=== PATIENT | female | born 1950 | race Caucasian/White ===

== ENCOUNTER 2017-09-23 16:41 | Inpatient (IN) | payer MEDICARE ==
[2017-09-23] MEDS ORDERED: Docusate 100 MG CAP PO PRN (18:25)
[2017-09-23] MEDS: METAXALONE 800 MG PO SCH (20:47)
[2017-09-23] MEDS: Vancomycin HCl 1 GM in Sodium Chloride 0.9% 250 ML 250 ML IVPB SCH (20:57)
[2017-09-23] MEDS: Venlafaxine HCl XR 150 MG CAP PO SCH (20:58)
[2017-09-23] MEDS: Pregabalin 25 MG CAP PO SCH (20:58)
[2017-09-23] MEDS: Zolpidem Tartrate 5 MG TAB PO SCH (20:59)
[2017-09-23] MEDS ORDERED: Cyclobenzaprine 10 MG TAB PO SCH (21:00)
[2017-09-23] MEDS: Acetaminophen 325 MG TAB PO PRN (21:03)
[2017-09-23] MEDS ORDERED: Vancomycin HCl 1 GM in Premix Bag 1 BAG IVPB SCH (22:00)
[2017-09-24] MEDS ORDERED: Sodium Chloride 0.9% 10 ML ONE (01:53)
[2017-09-24] MEDS: Vancomycin HCl 1 GM in Sodium Chloride 0.9% 250 ML 250 ML IVPB SCH ×3 (01:56→17:45)
[2017-09-24] MEDS: traMADol HCl 50 MG TAB PO PRN ×2 (05:03→12:01)
[2017-09-24] MEDS: Acetaminophen 325 MG TAB PO PRN ×2 (05:04→12:01)
[2017-09-24] MEDS: Pregabalin 25 MG CAP PO SCH ×2 (07:37→20:29)
[2017-09-24] MEDS: Stress 600 With Zinc 1 TAB PO SCH (07:38)
[2017-09-24] MEDS: METAXALONE 800 MG PO SCH ×2 (07:38→20:28)
[2017-09-24] MEDS ORDERED: Prevnar 13-Val Conj/PF 0.5 ML SYRINGE IM ONE (09:00)
--- NOTE | 2017-09-24 09:31 | HP ---
DATE OF ADMISSION: 09/23/2017 CHIEF COMPLAINT: IV antibiotics for postoperative wound infection and bacteremia. HISTORY OF PRESENT ILLNESS: This is a pleasant 67-year-old female with past medical history significant for fibromyalgia, chronic pain, osteoarthritis and severe lumbar stenosis that is seen today for admission to [facility] for planned IV antibiotics and physical therapy, status post L3 through L4 decompressive laminectomy that was complicated by 4 week postoperative wound infection as well as bacteremia. The patient presented to the emergency room on 09/15/2017 at [facility] with weakness, fever, and sepsis. The patient was found to have extensive wound infection at the site of her laminectomy. 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 The patient was taken to the operating room on 09/16/[address] Perez for washout of the lumbar wound and repair of the dura. Extensive purulent material was evacuated from the surgical site and irrigated extensively as well as local debridement. Subsequent wound and blood cultures resulted positive for MRSA with sensitivity to vancomycin. Dr. Stein was consulted who recommended at minimum 42 days of IV vancomycin via PICC line. The patient was stabilized from an infectious standpoint and was able to be transferred yesterday here for planned physical therapy as well as IV antibiotics. At present, the patient states her pain is very well controlled with tramadol as needed. She has no complaints at this time. She has been ambulatory to the bathroom, but has not had a chance to work with physical therapy. She is not having any further fevers and denies any other concerns at this time. PAST MEDICAL HISTORY: Significant for, 1. Severe lumbar stenosis, status post laminectomy of L3-L4. 2. Fibromyalgia. 3. Chronic pain syndrome. PAST SURGICAL HISTORY: 1. L3-L4 decompressive laminectomy performed on 08/19/2017. 2. Hysterectomy. 3. Cholecystectomy. 4. Washout of lumbar wound and debridement 09/16/17. SOCIAL HISTORY: The patient lives with her in [place]. She is not a smoker, does not drink alcohol or use illicit drugs. Her designated power of attorney general is her granddaughter, Josefina. She has expressed wishes to be DNR/DNI and will be completing paperwork on this in the near future. ALLERGIES TO MEDICATIONS: SULFA with reaction of swelling. FAMILY HISTORY: Noncontributory. MEDICATIONS: 1. Daily multivitamin. 2. Skelaxin 800 mg twice daily. 3. Pantoprazole 40 mg twice daily. 4. Lyrica 75 mg twice daily. 5. Tramadol 50 mg every 6 hours as needed. 6. Vancomycin 1 gram every 8 hours. 7. Effexor 150 mg once daily. 8. Ambien 10 mg once nightly. REVIEW OF SYSTEMS: She denies any fever, weight gain, weight loss, and malaise. She denies any chest pain, shortness of breath, nausea, vomiting, abdominal pain, diarrhea, bloody stools, dysuria, hematuria, frequency, syncope , headache. Essentially unremarkable with the exception of low back pain. PHYSICAL EXAMINATION: VITAL SIGNS: Temperature is 98.1 with T-max of 99.9 since admission, blood pressure is 117/59, heart rate is 93, respirations 20, O2 saturations 98% on room air. GENERAL: She is alert and oriented x3. She is in no apparent distress. She is resting comfortably in the bed. She is cooperative, calm. HEENT: Pupils are equally round and reactive to light. Extraocular movements are intact. Sclerae nonicteric, conjunctivae are not hyperemic. Oropharynx is moist without erythema or exudates. NECK: Supple, without lymphadenopathy or thyromegaly. Negative for carotid bruits. HEART: Has regular rate and rhythm without any murmurs. LUNGS: Clear to auscultation bilaterally with no wheezing, rales or rhonchi. ABDOMEN: Soft, nontender, nondistended with normoactive bowel sounds. EXTREMITIES: Negative for clubbing, cyanosis, edema. SKIN: Warm and dry. Posterior lower back incision is well approximated with sutures in place. No erythema or drainage at the surgical site. NEUROLOGIC: Strength is 5/5 in left lower extremity, 4/5 in right lower extremity, otherwise nonfocal. Cranial nerves II through XII are grossly intact. PSYCHIATRIC: She is pleasant, not depressed, not anxious, not agitated. LABORATORY DATA: Most recent labs done on 09/20/2017 showed a white blood cell count of 17.4, hemoglobin of 11.4, hematocrit 34.8, platelets at 329, the patient had a down trending C-reactive protein of 31 initially with subsequent result of 16 on 09/20/2017. Her last vancomycin trough was on 09/17/2017 at 15.7. ASSESSMENT AND PLAN: 1. Methicillin-resistant Staphylococcus aureus bacteremia, status post wound infection from L3-L4 laminectomy. The patient has been admitted to [facility] for planned IV antibiotics with vancomycin 1 gram every 8 hours for anticipated duration of [address] Stein will be contacted on Tuesday to clarify his involvement in managing her vancomycin troughs or if that will be managed exclusively here. For now, she is due for vancomycin trough level which will be drawn tomorrow as well as a CBC, CRP, and CMP weekly per his recommendations. The patient is doing very well and showing no further signs of sepsis at this time. 2. Status post L3-L4 laminectomy, complicated by postoperative wound infection. PT and OT will be consulted for patient to continue working on her rehabilitation status post surgery. She will be given pain control with tramadol, Lyrica, and muscle relaxer as needed. GI prophylaxis: protonix, which will be decreased and likely switched to H2 nicolette. DVT ppx: none. Code status: DNR. DISPOSITION: Anticipate minimum of 42 days of IV antibiotics that was started on 09/16/2017. She will need physical therapy until she is able to return home to independent living. We will be consulting Dr. Stein and Dr. Perez regarding her followup care on an outpatient basis. MCKINLEY
[2017-09-24] MEDS: Cyclobenzaprine 10 MG TAB PO PRN (14:27)
[2017-09-24 17:15] LABS: Vancomycin, Trough 20.1 ug/mL
[2017-09-24 17:16] LABS: Band 2 % (5-11); Hemoglobin 10.4 g/dL (12.0-16.0); Lymphocytes 15 % (21-51); MDiff Complete? YES; Manual Diff?? YES; Mean Corpuscular HGB CONC 33.5 g/dL (32.0-36.0); Mean Corpuscular Hemoglobin 29.6 pg (27.0-31.0); Mean Corpuscular Volume 88.6 fL (81.0-99.0); Mean Platelet Volume 6.5 fL (7.4-10.4); Monocytes 2 % (0-10); Neutrophil 81 % (42-75); Platelet Count 450 thou/uL (130-400); RBC Distribution Width 12.5 % (11.5-14.5); Red Blood Cell (RBC) Count 3.51 mill/uL (4.20-5.40); White Blood Cell (WBC) Count 15.2 thou/uL (4.8-10.8)
[2017-09-24 17:20] LABS: ALT (SGPT) 13 U/L (8-55); AST (SGOT) 13 U/L (5-34); Albumin 2.7 g/dL (3.4-4.8); Alkaline Phosphatase 90 U/L (40-150); Anion Gap 16 mmol/L (10-20); BUN (Urea Nitrogen) 6 mg/dL (9.8-20.1); Bilirubin, Total 0.4 mg/dL (0.2-1.2); Calc. Creatinine Clearance 125 mL/min (70-130); Calcium 8.5 mg/dL (7.8-10.44); Carbon Dioxide 26 mmol/L (23-31); Chloride 100 mmol/L (98-107); Estimated GFR-MDRD Greater than 90; Globulin 3.1 g/dL (2.4-3.5); Glucose 147 mg/dL (80-115); Protein, Total 5.8 g/dL (6.0-8.3); Sodium 139 mmol/L (136-145)
[2017-09-24 17:42] LABS: Potassium 2.7 mmol/L (3.5-5.1)
[2017-09-24] MEDS ORDERED: Potassium Chloride 20 MEQ in Premix Bag 1 BAG IVPB SCH (18:30)
[2017-09-24] MEDS ORDERED: Potassium Chloride 20 MEQ/100 ML PREMIX BAG ONE (19:43)
[2017-09-24] MEDS: Zolpidem Tartrate 5 MG TAB PO SCH (20:31)
[2017-09-24] MEDS: Venlafaxine HCl XR 150 MG CAP PO SCH (20:31)
[2017-09-25] MEDS: Vancomycin HCl 1 GM in Sodium Chloride 0.9% 250 ML 250 ML IVPB SCH ×3 (02:39→18:02)
[2017-09-25] MEDS: traMADol HCl 50 MG TAB PO PRN ×2 (02:40→08:43)
[2017-09-25 05:32] LABS: Anion Gap 14 mmol/L (10-20); BUN (Urea Nitrogen) 5 mg/dL (9.8-20.1); Calc. Creatinine Clearance 127 mL/min (70-130); Calcium 8.7 mg/dL (7.8-10.44); Carbon Dioxide 26 mmol/L (23-31); Chloride 102 mmol/L (98-107); Estimated GFR-MDRD Greater than 90; Glucose 106 mg/dL (80-115); Magnesium 1.9 mg/dL (1.6-2.6); Sodium 139 mmol/L (136-145)
[2017-09-25] MEDS: Pregabalin 25 MG CAP PO SCH ×2 (08:39→21:26)
[2017-09-25] MEDS: Stress 600 With Zinc 1 TAB PO SCH ×2 (08:40→08:45)
[2017-09-25] MEDS: Cyclobenzaprine 10 MG TAB PO PRN (08:43)
[2017-09-25] MEDS: Ondansetron ODT 4 MG TAB PO PRN (08:43)
[2017-09-25] MEDS ORDERED: Potassium Chloride 20 MEQ TAB PO SCH (12:45)
[2017-09-25] MEDS: METAXALONE 800 MG PO SCH ×2 (13:17→21:25)
[2017-09-25 16:26] LABS: CRP (Inflammatory) 13.17 mg/dL (= or < 0.5)
[2017-09-25] MEDS: Zolpidem Tartrate 5 MG TAB PO SCH (21:27)
[2017-09-25] MEDS: Venlafaxine HCl XR 150 MG CAP PO SCH (21:27)
[2017-09-26] MEDS: Vancomycin HCl 1 GM in Sodium Chloride 0.9% 250 ML 250 ML IVPB SCH ×3 (02:11→18:06)
[2017-09-26] MEDS: traMADol HCl 50 MG TAB PO PRN ×3 (04:41→16:54)
[2017-09-26] MEDS: Pregabalin 25 MG CAP PO SCH ×2 (08:12→20:08)
[2017-09-26] MEDS: METAXALONE 800 MG PO SCH ×3 (08:12→20:13)
[2017-09-26] MEDS: Stress 600 With Zinc 1 TAB PO SCH (08:13)
[2017-09-26 11:17] LABS: Anion Gap 16 mmol/L (10-20); BUN (Urea Nitrogen) 5 mg/dL (9.8-20.1); Calc. Creatinine Clearance 124 mL/min (70-130); Calcium 8.9 mg/dL (7.8-10.44); Carbon Dioxide 27 mmol/L (23-31); Chloride 101 mmol/L (98-107); Estimated GFR-MDRD Greater than 90; Glucose 115 mg/dL (80-115); Potassium 3.6 mmol/L (3.5-5.1); Sodium 140 mmol/L (136-145)
[2017-09-26] MEDS: Pregabalin 50 MG CAP PO SCH (20:10)
[2017-09-26] MEDS: Venlafaxine HCl XR 150 MG CAP PO SCH (20:10)
[2017-09-26] MEDS: Zolpidem Tartrate 5 MG TAB PO SCH (20:10)
[2017-09-27] MEDS: Vancomycin HCl 1 GM in Sodium Chloride 0.9% 250 ML 250 ML IVPB SCH ×3 (01:32→17:27)
[2017-09-27] MEDS: traMADol HCl 50 MG TAB PO PRN ×3 (07:55→23:53)
[2017-09-27] MEDS: Pregabalin 25 MG CAP PO SCH ×2 (08:31→20:26)
[2017-09-27] MEDS: Stress 600 With Zinc 1 TAB PO SCH (08:31)
[2017-09-27] MEDS: Pregabalin 50 MG CAP PO SCH ×2 (08:32→20:28)
[2017-09-27] MEDS: METAXALONE 800 MG PO SCH ×2 (08:35→20:29)
[2017-09-27] MEDS: Acetaminophen 325 MG TAB PO PRN ×2 (13:11→23:53)
[2017-09-27] MEDS: Venlafaxine HCl XR 150 MG CAP PO SCH (20:28)
[2017-09-27] MEDS: Zolpidem Tartrate 5 MG TAB PO SCH (20:29)
[2017-09-28] MEDS: Vancomycin HCl 1 GM in Sodium Chloride 0.9% 250 ML 250 ML IVPB SCH ×3 (01:53→17:35)
[2017-09-28] MEDS: Pregabalin 25 MG CAP PO SCH ×2 (08:18→20:37)
[2017-09-28] MEDS: Pregabalin 50 MG CAP PO SCH ×2 (08:19→20:38)
[2017-09-28] MEDS: Stress 600 With Zinc 1 TAB PO SCH ×2 (08:20→08:23)
[2017-09-28] MEDS: METAXALONE 800 MG PO SCH ×2 (08:20→20:36)
[2017-09-28] MEDS: traMADol HCl 50 MG TAB PO PRN (14:06)
[2017-09-28] MEDS: Acetaminophen 325 MG TAB PO PRN (14:07)
[2017-09-28] MEDS: MISOPROSTOL PO SCH (20:36)
[2017-09-28] MEDS: DICLOFENAC PO SCH (20:36)
[2017-09-28] MEDS: Venlafaxine HCl XR 150 MG CAP PO SCH (20:39)
[2017-09-28] MEDS: Zolpidem Tartrate 5 MG TAB PO SCH (20:39)
[2017-09-29] MEDS: Vancomycin HCl 1 GM in Sodium Chloride 0.9% 250 ML 250 ML IVPB SCH ×3 (01:53→17:46)
[2017-09-29] MEDS: traMADol HCl 50 MG TAB PO PRN ×3 (04:51→19:11)
[2017-09-29] MEDS: Pregabalin 50 MG CAP PO SCH ×2 (08:45→21:06)
[2017-09-29] MEDS: DICLOFENAC PO SCH ×2 (08:46→21:09)
[2017-09-29] MEDS: MISOPROSTOL PO SCH ×2 (08:46→21:09)
[2017-09-29] MEDS: Pregabalin 25 MG CAP PO SCH ×2 (08:46→21:16)
[2017-09-29] MEDS: METAXALONE 800 MG PO SCH ×2 (08:47→21:09)
[2017-09-29] MEDS: Stress 600 With Zinc 1 TAB PO SCH (08:48)
[2017-09-29] MEDS: Fluconazole 100 MG TAB PO SCH (10:18)
[2017-09-29] MEDS: Venlafaxine HCl XR 150 MG CAP PO SCH (21:04)
[2017-09-29] MEDS: Zolpidem Tartrate 5 MG TAB PO SCH (21:07)
[2017-09-29] MEDS: Clotrimazole 1% Cream 15 GM TUBE TOP SCH (21:11)
[2017-09-30] MEDS: Vancomycin HCl 1 GM in Sodium Chloride 0.9% 250 ML 250 ML IVPB SCH ×3 (01:37→17:39)
[2017-09-30] MEDS: traMADol HCl 50 MG TAB PO PRN (08:27)
[2017-09-30] MEDS: Stress 600 With Zinc 1 TAB PO SCH (08:28)
[2017-09-30] MEDS: Fluconazole 100 MG TAB PO SCH (09:18)
[2017-09-30] MEDS: Clotrimazole 1% Cream 15 GM TUBE TOP SCH ×2 (09:18→21:19)
[2017-09-30] MEDS: MISOPROSTOL PO SCH ×2 (09:20→20:10)
[2017-09-30] MEDS: DICLOFENAC PO SCH ×2 (09:20→20:10)
[2017-09-30] MEDS: METAXALONE 800 MG PO SCH (09:21)
[2017-09-30] MEDS: Pregabalin 25 MG CAP PO SCH ×2 (09:25→21:15)
[2017-09-30] MEDS: Pregabalin 50 MG CAP PO SCH ×2 (09:25→21:18)
[2017-09-30] MEDS: Acetaminophen 325 MG TAB PO PRN (20:08)
[2017-09-30] MEDS: Docusate 100 MG CAP PO PRN (20:08)
[2017-09-30] MEDS: Venlafaxine HCl XR 150 MG CAP PO SCH (20:08)
[2017-09-30] MEDS: Zolpidem Tartrate 5 MG TAB PO PRN (21:22)
[2017-09-30] MEDS: METAXALONE 800 MG PO PRN (21:29)
[2017-10-01] MEDS: Vancomycin HCl 1 GM in Sodium Chloride 0.9% 250 ML 250 ML IVPB SCH ×3 (01:40→18:07)
[2017-10-01] MEDS: Stress 600 With Zinc 1 TAB PO SCH (09:06)
[2017-10-01] MEDS: Pregabalin 25 MG CAP PO SCH ×2 (09:06→20:14)
[2017-10-01] MEDS: MISOPROSTOL PO SCH ×2 (09:06→20:18)
[2017-10-01] MEDS: DICLOFENAC PO SCH ×2 (09:06→20:18)
[2017-10-01] MEDS: Pregabalin 50 MG CAP PO SCH ×2 (09:07→20:13)
[2017-10-01] MEDS: Clotrimazole 1% Cream 15 GM TUBE TOP SCH ×2 (09:08→19:24)
[2017-10-01] MEDS: Fluconazole 100 MG TAB PO SCH (09:08)
[2017-10-01] MEDS: Acetaminophen 325 MG TAB PO PRN ×2 (09:12→14:51)
[2017-10-01 17:53] LABS: #Basophils 0.1 thou/uL (0.0-0.2); #Eosinphils 0.3 thou/uL (0.0-0.7); #Monocytes 0.7 thou/uL (0.11-0.59); #Neutrophils 5.2 thou/uL (1.40-6.50); %Eosinophils 3.9 % (0.0-10.0); %Lymphocytes 23.6 % (21.0-51.0); %Monocytes 8.8 % (0.0-10.0); %Neutrophils 62.7 % (42.0-75.0); Hemoglobin 10.7 g/dL (12.0-16.0); Mean Corpuscular HGB CONC 35.2 g/dL (32.0-36.0); Mean Corpuscular Hemoglobin 29.7 pg (27.0-31.0); Mean Corpuscular Volume 84.4 fl (81.0-99.0); Mean Platelet Volume 5.5 fL (7.4-10.4); Platelet Count 661 thou/uL (130-400); RBC Distribution Width 12.7 % (11.5-14.5); Red Blood Cell (RBC) Count 3.62 mill/uL (4.20-5.40); White Blood Cell (WBC) Count 8.3 thou/uL (4.8-10.8)
[2017-10-01 18:05] LABS: Vancomycin, Trough 23.1 ug/mL
[2017-10-01 18:07] LABS: ALT (SGPT) 12 U/L (8-55); AST (SGOT) 12 U/L (5-34); Albumin 3.2 g/dL (3.4-4.8); Alkaline Phosphatase 93 U/L (40-150); Anion Gap 16 mmol/L (10-20); BUN (Urea Nitrogen) 8 mg/dL (9.8-20.1); Bilirubin, Total 0.5 mg/dL (0.2-1.2); Calc. Creatinine Clearance 109 mL/min (70-130); Calcium 9.1 mg/dL (7.8-10.44); Carbon Dioxide 23 mmol/L (23-31); Chloride 105 mmol/L (98-107); Estimated GFR-MDRD 80; Globulin 3.8 g/dL (2.4-3.5); Glucose 141 mg/dL (80-115); Potassium 3.3 mmol/L (3.5-5.1); Sodium 141 mmol/L (136-145)
[2017-10-01] MEDS: METAXALONE 800 MG PO PRN (20:11)
[2017-10-01] MEDS: Venlafaxine HCl XR 150 MG CAP PO SCH (20:12)
[2017-10-01] MEDS: Zolpidem Tartrate 5 MG TAB PO PRN (21:20)
[2017-10-02] MEDS: Vancomycin HCl 750 MG in Sodium Chloride 0.9% 250 ML 250 ML IVPB SCH ×3 (02:02→18:18)
[2017-10-02] MEDS: Acetaminophen 325 MG TAB PO PRN (06:39)
[2017-10-02 07:08] LABS: Potassium 3.3 mmol/L (3.5-5.1)
[2017-10-02] MEDS: DICLOFENAC PO SCH ×2 (08:43→20:07)
[2017-10-02] MEDS: MISOPROSTOL PO SCH ×2 (08:43→20:07)
[2017-10-02] MEDS: Pregabalin 25 MG CAP PO SCH ×2 (08:44→20:09)
[2017-10-02] MEDS: Pregabalin 50 MG CAP PO SCH ×2 (08:45→20:08)
[2017-10-02] MEDS: Fluconazole 100 MG TAB PO SCH (08:45)
[2017-10-02] MEDS: Stress 600 With Zinc 1 TAB PO SCH (08:46)
[2017-10-02] MEDS: METAXALONE 800 MG PO PRN ×2 (08:47→19:51)
[2017-10-02] MEDS: Clotrimazole 1% Cream 15 GM TUBE TOP SCH ×2 (08:48→20:07)
[2017-10-02] MEDS: Docusate 100 MG CAP PO PRN ×2 (08:50→20:10)
[2017-10-02] MEDS: Venlafaxine HCl XR 150 MG CAP PO SCH (20:09)
[2017-10-02] MEDS: Zolpidem Tartrate 5 MG TAB PO PRN (22:07)
[2017-10-03] MEDS: Vancomycin HCl 750 MG in Sodium Chloride 0.9% 250 ML 250 ML IVPB SCH ×3 (01:35→17:45)
[2017-10-03 01:51] LABS: Vancomycin, Trough 20.6 ug/mL
[2017-10-03] MEDS: Acetaminophen 325 MG TAB PO PRN ×2 (06:13→09:52)
[2017-10-03] MEDS: Fluconazole 100 MG TAB PO SCH (08:40)
[2017-10-03] MEDS: Stress 600 With Zinc 1 TAB PO SCH (08:41)
[2017-10-03] MEDS: Clotrimazole 1% Cream 15 GM TUBE TOP SCH ×2 (08:42→20:48)
[2017-10-03] MEDS: DICLOFENAC PO SCH ×2 (08:42→20:48)
[2017-10-03] MEDS: MISOPROSTOL PO SCH ×2 (08:42→20:48)
[2017-10-03] MEDS: Pregabalin 25 MG CAP PO SCH ×2 (09:50→20:40)
[2017-10-03] MEDS: Pregabalin 50 MG CAP PO SCH ×2 (09:50→20:45)
[2017-10-03] MEDS: METAXALONE 800 MG PO PRN (20:39)
[2017-10-03] MEDS: Venlafaxine HCl XR 150 MG CAP PO SCH (20:49)
[2017-10-03] MEDS: Zolpidem Tartrate 5 MG TAB PO PRN (22:06)
[2017-10-04] MEDS: Vancomycin HCl 750 MG in Sodium Chloride 0.9% 250 ML 250 ML IVPB SCH ×3 (02:08→18:14)
[2017-10-04] MEDS: Acetaminophen 325 MG TAB PO PRN ×2 (04:09→18:19)
[2017-10-04] MEDS: Potassium Chloride 10 MEQ TAB PO SCH (08:32)
[2017-10-04] MEDS: Pregabalin 25 MG CAP PO SCH ×2 (08:33→21:01)
[2017-10-04] MEDS: DICLOFENAC PO SCH ×2 (08:33→20:57)
[2017-10-04] MEDS: MISOPROSTOL PO SCH ×2 (08:33→20:57)
[2017-10-04] MEDS: Pregabalin 50 MG CAP PO SCH ×2 (08:34→20:59)
[2017-10-04] MEDS: Stress 600 With Zinc 1 TAB PO SCH (08:35)
[2017-10-04] MEDS: Clotrimazole 1% Cream 15 GM TUBE TOP SCH ×2 (08:41→21:03)
[2017-10-04 09:43] LABS: Vancomycin, Trough 17.8 ug/mL
[2017-10-04] MEDS: Fluconazole 100 MG TAB PO SCH (10:09)
[2017-10-04] MEDS ORDERED: Sod Chloride/Lan/MO/Peet,Wh (Lubriderm) Lotion 180 ml Bottle TOP PRN (14:02)
[2017-10-04] MEDS: Triamcinolone 0.1% Cream 15 GM TUBE TOP PRN (16:33)
[2017-10-04] MEDS: METAXALONE 800 MG PO PRN (20:58)
[2017-10-04] MEDS: Venlafaxine HCl XR 150 MG CAP PO SCH (20:59)
[2017-10-04] MEDS: traZODone HCl 50 MG TAB PO PRN (21:02)
[2017-10-05] MEDS: Vancomycin HCl 750 MG in Sodium Chloride 0.9% 250 ML 250 ML IVPB SCH ×3 (01:41→18:20)
[2017-10-05] MEDS: Ondansetron ODT 4 MG TAB PO PRN (02:27)
[2017-10-05] MEDS: Potassium Chloride 10 MEQ TAB PO SCH (08:33)
[2017-10-05] MEDS: MISOPROSTOL PO SCH ×2 (08:34→21:24)
[2017-10-05] MEDS: Pregabalin 25 MG CAP PO SCH ×2 (08:34→21:26)
[2017-10-05] MEDS: DICLOFENAC PO SCH ×2 (08:34→21:24)
[2017-10-05] MEDS: Pregabalin 50 MG CAP PO SCH ×2 (08:35→21:27)
[2017-10-05] MEDS: Clotrimazole 1% Cream 15 GM TUBE TOP SCH ×2 (08:49→21:23)
[2017-10-05] MEDS ORDERED: Cyanocobalamin (Vitamin B-12) 1,000 MCG TAB PO SCH (09:15)
[2017-10-05] MEDS: Acetaminophen 325 MG TAB PO PRN ×2 (09:27→18:34)
[2017-10-05] MEDS: METAXALONE 800 MG PO PRN ×2 (12:31→21:24)
[2017-10-05] MEDS: Venlafaxine HCl XR 150 MG CAP PO SCH (21:30)
[2017-10-05] MEDS: Docusate 100 MG CAP PO PRN (21:30)
[2017-10-05] MEDS: traZODone HCl 50 MG TAB PO PRN (21:30)
[2017-10-06] MEDS: Vancomycin HCl 750 MG in Sodium Chloride 0.9% 250 ML 250 ML IVPB SCH ×3 (01:45→17:42)
[2017-10-06] MEDS: Acetaminophen 325 MG TAB PO PRN ×2 (07:26→17:42)
[2017-10-06] MEDS: Cyanocobalamin (Vitamin B-12) 1,000 MCG TAB PO SCH (09:00)
[2017-10-06] MEDS: Pregabalin 50 MG CAP PO SCH ×2 (09:00→21:04)
[2017-10-06] MEDS: Potassium Chloride 10 MEQ TAB PO SCH (09:00)
[2017-10-06] MEDS: Clotrimazole 1% Cream 15 GM TUBE TOP SCH ×2 (09:01→21:03)
[2017-10-06] MEDS: Pregabalin 25 MG CAP PO SCH ×2 (09:01→21:05)
[2017-10-06] MEDS: DICLOFENAC PO SCH ×2 (09:01→21:02)
[2017-10-06] MEDS: MISOPROSTOL PO SCH ×2 (09:01→21:02)
[2017-10-06] MEDS: Docusate 100 MG CAP PO PRN (17:47)
[2017-10-06] MEDS: traZODone HCl 50 MG TAB PO PRN (21:03)
[2017-10-06] MEDS: Venlafaxine HCl XR 150 MG CAP PO SCH (21:03)
[2017-10-06] MEDS: METAXALONE 800 MG PO PRN (21:04)
[2017-10-07] MEDS: Vancomycin HCl 750 MG in Sodium Chloride 0.9% 250 ML 250 ML IVPB SCH ×3 (02:45→17:30)
[2017-10-07] MEDS: Pregabalin 25 MG CAP PO SCH ×2 (08:12→20:34)
[2017-10-07] MEDS: Cyanocobalamin (Vitamin B-12) 1,000 MCG TAB PO SCH (08:12)
[2017-10-07] MEDS: Pregabalin 50 MG CAP PO SCH ×2 (08:13→20:36)
[2017-10-07] MEDS: Potassium Chloride 10 MEQ TAB PO SCH (08:14)
[2017-10-07] MEDS: Clotrimazole 1% Cream 15 GM TUBE TOP SCH ×2 (08:14→20:36)
[2017-10-07] MEDS: MISOPROSTOL PO SCH ×2 (08:15→20:36)
[2017-10-07] MEDS: DICLOFENAC PO SCH ×2 (08:15→20:36)
[2017-10-07] MEDS: METAXALONE 800 MG PO PRN ×2 (08:16→21:06)
[2017-10-07] MEDS: Docusate 100 MG CAP PO PRN (16:36)
[2017-10-07] MEDS: Venlafaxine HCl XR 150 MG CAP PO SCH (20:33)
[2017-10-07] MEDS: traZODone HCl 50 MG TAB PO PRN (21:06)
[2017-10-08] MEDS: Vancomycin HCl 750 MG in Sodium Chloride 0.9% 250 ML 250 ML IVPB SCH ×3 (02:06→17:58)
[2017-10-08] MEDS: METAXALONE 800 MG PO PRN (08:01)
[2017-10-08] MEDS: MISOPROSTOL PO SCH ×2 (08:02→20:59)
[2017-10-08] MEDS: DICLOFENAC PO SCH ×2 (08:02→20:59)
[2017-10-08] MEDS: Pregabalin 50 MG CAP PO SCH ×2 (08:02→21:03)
[2017-10-08] MEDS: Pregabalin 25 MG CAP PO SCH ×2 (08:03→21:02)
[2017-10-08] MEDS: Cyanocobalamin (Vitamin B-12) 1,000 MCG TAB PO SCH (08:04)
[2017-10-08] MEDS: Clotrimazole 1% Cream 15 GM TUBE TOP SCH ×2 (08:04→20:59)
[2017-10-08] MEDS: Potassium Chloride 10 MEQ TAB PO SCH (08:04)
[2017-10-08] MEDS: Acetaminophen 325 MG TAB PO PRN (10:26)
[2017-10-08] MEDS: Venlafaxine HCl XR 150 MG CAP PO SCH (21:04)
[2017-10-08] MEDS: traZODone HCl 50 MG TAB PO PRN (21:09)
[2017-10-09] MEDS: Vancomycin HCl 750 MG in Sodium Chloride 0.9% 250 ML 250 ML IVPB SCH ×3 (02:24→17:50)
[2017-10-09] MEDS: Cyanocobalamin (Vitamin B-12) 1,000 MCG TAB PO SCH (08:22)
[2017-10-09] MEDS: Potassium Chloride 10 MEQ TAB PO SCH (08:22)
[2017-10-09] MEDS: Pregabalin 25 MG CAP PO SCH ×2 (08:23→20:40)
[2017-10-09] MEDS: Pregabalin 50 MG CAP PO SCH ×2 (08:23→20:41)
[2017-10-09] MEDS: MISOPROSTOL PO SCH ×2 (08:27→20:42)
[2017-10-09] MEDS: DICLOFENAC PO SCH ×2 (08:27→20:42)
[2017-10-09] MEDS: Clotrimazole 1% Cream 15 GM TUBE TOP SCH ×2 (08:27→20:44)
[2017-10-09] MEDS: Acetaminophen 325 MG TAB PO PRN ×2 (09:58→14:22)
[2017-10-09] MEDS: METAXALONE 800 MG PO PRN (20:42)
[2017-10-09] MEDS: Venlafaxine HCl XR 150 MG CAP PO SCH (20:43)
[2017-10-09] MEDS: traZODone HCl 50 MG TAB PO PRN (20:43)
[2017-10-10] MEDS: Vancomycin HCl 750 MG in Sodium Chloride 0.9% 250 ML 250 ML IVPB SCH ×3 (01:48→17:42)
[2017-10-10 05:10] LABS: #Basophils 0.1 thou/uL (0.0-0.2); #Eosinphils 0.5 thou/uL (0.0-0.7); #Lymphocytes 2.1 thou/uL (1.20-3.40); #Monocytes 0.9 thou/uL (0.11-0.59); #Neutrophils 3.4 thou/uL (1.40-6.50); %Basophils 1.2 % (0.0-1.0); %Eosinophils 7.2 % (0.0-10.0); %Lymphocytes 30.3 % (21.0-51.0); %Monocytes 12.1 % (0.0-10.0); %Neutrophils 49.2 % (42.0-75.0); Mean Corpuscular HGB CONC 32.8 g/dL (32.0-36.0); Mean Corpuscular Hemoglobin 27.4 pg (27.0-31.0); Mean Corpuscular Volume 83.7 fl (81.0-99.0); Mean Platelet Volume 6.1 fL (7.4-10.4); Platelet Count 325 thou/uL (130-400); RBC Distribution Width 12.8 % (11.5-14.5); Red Blood Cell (RBC) Count 4.02 mill/uL (4.20-5.40)
[2017-10-10 05:23] LABS: ALT (SGPT) 20 U/L (8-55); AST (SGOT) 22 U/L (5-34); Albumin 3.3 g/dL (3.4-4.8); Alkaline Phosphatase 116 U/L (40-150); Anion Gap 16 mmol/L (10-20); BUN (Urea Nitrogen) 11 mg/dL (9.8-20.1); Bilirubin, Total 0.4 mg/dL (0.2-1.2); Calc. Creatinine Clearance 109 mL/min (70-130); Calcium 9.1 mg/dL (7.8-10.44); Carbon Dioxide 23 mmol/L (23-31); Chloride 108 mmol/L (98-107); Estimated GFR-MDRD 83; Globulin 3.7 g/dL (2.4-3.5); Glucose 102 mg/dL (80-115); Potassium 3.6 mmol/L (3.5-5.1); Sodium 143 mmol/L (136-145)
[2017-10-10] MEDS: Potassium Chloride 10 MEQ TAB PO SCH (08:05)
[2017-10-10] MEDS: Cyanocobalamin (Vitamin B-12) 1,000 MCG TAB PO SCH (08:06)
[2017-10-10] MEDS: Pregabalin 25 MG CAP PO SCH ×2 (08:11→21:07)
[2017-10-10] MEDS: METAXALONE 800 MG PO PRN ×2 (08:12→21:09)
[2017-10-10] MEDS: Pregabalin 50 MG CAP PO SCH ×2 (08:12→21:07)
[2017-10-10] MEDS: DICLOFENAC PO SCH ×2 (08:15→21:06)
[2017-10-10] MEDS: MISOPROSTOL PO SCH ×2 (08:15→21:06)
[2017-10-10] MEDS: Clotrimazole 1% Cream 15 GM TUBE TOP PRN (10:05)
[2017-10-10] MEDS: Clotrimazole 1% Cream 15 GM TUBE TOP SCH ×2 (10:06→21:09)
[2017-10-10 11:35] LABS: CRP (Inflammatory) 4.76 mg/dL (= or < 0.5)
[2017-10-10] MEDS ORDERED: Fluconazole 100 MG TAB PO SCH (14:15)
[2017-10-10] MEDS: Acetaminophen 325 MG TAB PO PRN (21:05)
[2017-10-10] MEDS: traZODone HCl 50 MG TAB PO PRN (21:08)
[2017-10-10] MEDS: Venlafaxine HCl XR 150 MG CAP PO SCH (21:08)
[2017-10-11] MEDS: Vancomycin HCl 750 MG in Sodium Chloride 0.9% 250 ML 250 ML IVPB SCH ×3 (01:41→17:26)
[2017-10-11] MEDS: Potassium Chloride 10 MEQ TAB PO SCH (07:49)
[2017-10-11] MEDS: MISOPROSTOL PO SCH ×2 (08:30→21:10)
[2017-10-11] MEDS: DICLOFENAC PO SCH ×2 (08:30→21:10)
[2017-10-11] MEDS: Cyanocobalamin (Vitamin B-12) 1,000 MCG TAB PO SCH (08:32)
[2017-10-11] MEDS: Clotrimazole 1% Cream 15 GM TUBE TOP SCH ×2 (08:32→21:10)
[2017-10-11] MEDS: METAXALONE 800 MG PO PRN ×2 (08:35→21:18)
[2017-10-11] MEDS: Pregabalin 50 MG CAP PO SCH ×2 (08:36→21:08)
[2017-10-11] MEDS: Pregabalin 25 MG CAP PO SCH ×2 (08:37→21:06)
[2017-10-11 09:56] LABS: Vancomycin, Trough 16.9 ug/mL
[2017-10-11] MEDS: Acetaminophen 325 MG TAB PO PRN (21:06)
[2017-10-11] MEDS: Venlafaxine HCl XR 150 MG CAP PO SCH (21:08)
[2017-10-11] MEDS: traZODone HCl 50 MG TAB PO PRN (21:20)
[2017-10-12] MEDS: Vancomycin HCl 750 MG in Sodium Chloride 0.9% 250 ML 250 ML IVPB SCH ×3 (02:05→18:06)
[2017-10-12] MEDS: Pregabalin 50 MG CAP PO SCH ×2 (08:00→20:27)
[2017-10-12] MEDS: Cyanocobalamin (Vitamin B-12) 1,000 MCG TAB PO SCH (08:00)
[2017-10-12] MEDS: MISOPROSTOL PO SCH ×2 (08:01→20:25)
[2017-10-12] MEDS: Clotrimazole 1% Cream 15 GM TUBE TOP SCH ×2 (08:01→20:30)
[2017-10-12] MEDS: Pregabalin 25 MG CAP PO SCH ×2 (08:01→20:28)
[2017-10-12] MEDS: Potassium Chloride 10 MEQ TAB PO SCH (08:01)
[2017-10-12] MEDS: DICLOFENAC PO SCH ×2 (08:01→20:25)
[2017-10-12] MEDS: METAXALONE 800 MG PO PRN ×2 (08:03→20:26)
[2017-10-12] MEDS: Docusate 100 MG CAP PO PRN (19:06)
[2017-10-12] MEDS: Venlafaxine HCl XR 150 MG CAP PO SCH (20:29)
[2017-10-12] MEDS: traZODone HCl 50 MG TAB PO PRN (20:29)
[2017-10-12] MEDS: Acetaminophen 325 MG TAB PO PRN (20:29)
[2017-10-12] MEDS: Clotrimazole 1% Cream 15 GM TUBE TOP PRN (20:34)
[2017-10-13] MEDS: Ondansetron ODT 4 MG TAB PO PRN (00:31)
[2017-10-13] MEDS: Vancomycin HCl 750 MG in Sodium Chloride 0.9% 250 ML 250 ML IVPB SCH ×3 (01:52→17:21)
[2017-10-13] MEDS: Acetaminophen 325 MG TAB PO PRN ×2 (05:59→16:38)
[2017-10-13] MEDS: Pregabalin 50 MG CAP PO SCH ×2 (08:12→20:50)
[2017-10-13] MEDS: Cyanocobalamin (Vitamin B-12) 1,000 MCG TAB PO SCH (08:12)
[2017-10-13] MEDS: Potassium Chloride 10 MEQ TAB PO SCH (08:12)
[2017-10-13] MEDS: Pregabalin 25 MG CAP PO SCH ×2 (08:13→20:51)
[2017-10-13] MEDS: METAXALONE 800 MG PO PRN ×3 (08:14→21:02)
[2017-10-13] MEDS: Clotrimazole 1% Cream 15 GM TUBE TOP SCH ×2 (08:16→20:53)
[2017-10-13] MEDS: MISOPROSTOL PO SCH ×2 (08:16→21:03)
[2017-10-13] MEDS: DICLOFENAC PO SCH ×2 (08:16→21:03)
[2017-10-13] MEDS: Docusate 100 MG CAP PO PRN ×2 (08:20→20:50)
[2017-10-13] MEDS: traZODone HCl 50 MG TAB PO PRN (20:52)
[2017-10-13] MEDS: Venlafaxine HCl XR 150 MG CAP PO SCH (20:52)
[2017-10-13] MEDS ORDERED: traZODone HCl 50 MG TAB PO SCH (23:15)
[2017-10-14] MEDS: Vancomycin HCl 750 MG in Sodium Chloride 0.9% 250 ML 250 ML IVPB SCH ×3 (01:10→17:42)
[2017-10-14] MEDS: Acetaminophen 325 MG TAB PO PRN (01:16)
[2017-10-14] MEDS: Pregabalin 25 MG CAP PO SCH ×2 (08:08→20:43)
[2017-10-14] MEDS: Cyanocobalamin (Vitamin B-12) 1,000 MCG TAB PO SCH (08:08)
[2017-10-14] MEDS: Potassium Chloride 10 MEQ TAB PO SCH (08:09)
[2017-10-14] MEDS: Pregabalin 50 MG CAP PO SCH ×2 (08:09→20:46)
[2017-10-14] MEDS: Clotrimazole 1% Cream 15 GM TUBE TOP SCH ×2 (08:10→20:47)
[2017-10-14] MEDS: DICLOFENAC PO SCH ×2 (08:12→20:47)
[2017-10-14] MEDS: MISOPROSTOL PO SCH ×2 (08:12→20:47)
[2017-10-14] MEDS: METAXALONE 800 MG PO PRN ×2 (08:13→20:49)
[2017-10-14] MEDS: Venlafaxine HCl XR 150 MG CAP PO SCH (20:45)
[2017-10-14] MEDS: traZODone HCl 50 MG TAB PO PRN (20:49)
[2017-10-15] MEDS: Acetaminophen 325 MG TAB PO PRN (01:00)
[2017-10-15] MEDS: Vancomycin HCl 750 MG in Sodium Chloride 0.9% 250 ML 250 ML IVPB SCH ×3 (01:52→17:57)
[2017-10-15] MEDS: Cyanocobalamin (Vitamin B-12) 1,000 MCG TAB PO SCH (09:25)
[2017-10-15] MEDS: Pregabalin 25 MG CAP PO SCH ×2 (09:25→20:56)
[2017-10-15] MEDS: Potassium Chloride 10 MEQ TAB PO SCH (09:25)
[2017-10-15] MEDS: MISOPROSTOL PO SCH ×2 (09:26→20:55)
[2017-10-15] MEDS: Pregabalin 50 MG CAP PO SCH ×2 (09:26→20:57)
[2017-10-15] MEDS: DICLOFENAC PO SCH ×2 (09:26→20:55)
[2017-10-15] MEDS: METAXALONE 800 MG PO PRN ×2 (09:28→20:59)
[2017-10-15] MEDS: Docusate 100 MG CAP PO PRN ×2 (09:30→20:59)
[2017-10-15] MEDS: Clotrimazole 1% Cream 15 GM TUBE TOP SCH ×2 (12:04→20:55)
[2017-10-15] MEDS: traZODone HCl 50 MG TAB PO PRN (20:58)
[2017-10-15] MEDS: Venlafaxine HCl XR 150 MG CAP PO SCH (20:58)
[2017-10-16] MEDS: Vancomycin HCl 750 MG in Sodium Chloride 0.9% 250 ML 250 ML IVPB SCH ×3 (02:08→18:02)
[2017-10-16] MEDS: Acetaminophen 325 MG TAB PO PRN ×2 (03:26→18:09)
[2017-10-16] MEDS: Potassium Chloride 10 MEQ TAB PO SCH (08:12)
[2017-10-16] MEDS: Pregabalin 25 MG CAP PO SCH ×2 (08:13→20:59)
[2017-10-16] MEDS: Cyanocobalamin (Vitamin B-12) 1,000 MCG TAB PO SCH (08:14)
[2017-10-16] MEDS: Pregabalin 50 MG CAP PO SCH ×2 (08:14→21:01)
[2017-10-16] MEDS: METAXALONE 800 MG PO PRN ×2 (08:15→21:03)
[2017-10-16] MEDS: MISOPROSTOL PO SCH ×2 (08:15→21:03)
[2017-10-16] MEDS: DICLOFENAC PO SCH ×2 (08:15→21:03)
[2017-10-16] MEDS: Clotrimazole 1% Cream 15 GM TUBE TOP SCH ×2 (08:16→20:57)
[2017-10-16] MEDS: Venlafaxine HCl XR 150 MG CAP PO SCH (20:58)
[2017-10-16] MEDS: traZODone HCl 50 MG TAB PO PRN (21:02)
[2017-10-17] MEDS: Vancomycin HCl 750 MG in Sodium Chloride 0.9% 250 ML 250 ML IVPB SCH ×3 (01:55→17:52)
[2017-10-17] MEDS: Potassium Chloride 10 MEQ TAB PO SCH (07:49)
[2017-10-17] MEDS: Cyanocobalamin (Vitamin B-12) 1,000 MCG TAB PO SCH (07:50)
[2017-10-17] MEDS: Clotrimazole 1% Cream 15 GM TUBE TOP SCH ×2 (07:50→21:12)
[2017-10-17] MEDS: MISOPROSTOL PO SCH ×2 (07:51→21:06)
[2017-10-17] MEDS: DICLOFENAC PO SCH ×2 (07:51→21:06)
[2017-10-17] MEDS: Pregabalin 25 MG CAP PO SCH ×2 (07:51→21:08)
[2017-10-17] MEDS: Pregabalin 50 MG CAP PO SCH ×2 (07:53→21:07)
[2017-10-17] MEDS: METAXALONE 800 MG PO PRN ×2 (08:33→21:09)
[2017-10-17] MEDS: Venlafaxine HCl XR 150 MG CAP PO SCH (21:08)
[2017-10-17] MEDS: Acetaminophen 325 MG TAB PO PRN (21:09)
[2017-10-17] MEDS: traZODone HCl 50 MG TAB PO PRN (21:09)
[2017-10-18] MEDS: Vancomycin HCl 750 MG in Sodium Chloride 0.9% 250 ML 250 ML IVPB SCH ×3 (02:20→18:03)
[2017-10-18] MEDS: Pregabalin 25 MG CAP PO SCH ×2 (08:16→21:23)
[2017-10-18] MEDS: Cyanocobalamin (Vitamin B-12) 1,000 MCG TAB PO SCH (08:16)
[2017-10-18] MEDS: Clotrimazole 1% Cream 15 GM TUBE TOP SCH ×2 (08:16→21:22)
[2017-10-18] MEDS: Potassium Chloride 10 MEQ TAB PO SCH (08:16)
[2017-10-18] MEDS: Pregabalin 50 MG CAP PO SCH ×2 (08:17→21:24)
[2017-10-18] MEDS: DICLOFENAC PO SCH ×2 (08:18→21:22)
[2017-10-18] MEDS: MISOPROSTOL PO SCH ×2 (08:18→21:22)
[2017-10-18] MEDS: METAXALONE 800 MG PO PRN ×2 (08:20→21:27)
[2017-10-18 09:09] LABS: #Basophils 0.1 thou/uL (0.0-0.2); #Eosinphils 0.5 thou/uL (0.0-0.7); #Lymphocytes 1.6 thou/uL (1.20-3.40); #Monocytes 0.6 thou/uL (0.11-0.59); #Neutrophils 5.6 thou/uL (1.40-6.50); %Basophils 1.5 % (0.0-1.0); %Eosinophils 5.7 % (0.0-10.0); %Lymphocytes 19.7 % (21.0-51.0); %Monocytes 6.6 % (0.0-10.0); %Neutrophils 66.6 % (42.0-75.0); Hemoglobin 11.7 g/dL (12.0-16.0); Mean Corpuscular HGB CONC 32.7 g/dL (32.0-36.0); Mean Corpuscular Hemoglobin 27.4 pg (27.0-31.0); Mean Corpuscular Volume 83.9 fl (81.0-99.0); Mean Platelet Volume 6.4 fL (7.4-10.4); Platelet Count 312 thou/uL (130-400); RBC Distribution Width 13.4 % (11.5-14.5); Red Blood Cell (RBC) Count 4.28 mill/uL (4.20-5.40); White Blood Cell (WBC) Count 8.3 thou/uL (4.8-10.8)
[2017-10-18 09:25] LABS: ALT (SGPT) 37 U/L (8-55); AST (SGOT) 26 U/L (5-34); Albumin 3.6 g/dL (3.4-4.8); Alkaline Phosphatase 148 U/L (40-150); Anion Gap 16 mmol/L (10-20); BUN (Urea Nitrogen) 9 mg/dL (9.8-20.1); Bilirubin, Total 0.4 mg/dL (0.2-1.2); Calc. Creatinine Clearance 89 mL/min (70-130); Calcium 9.5 mg/dL (7.8-10.44); Carbon Dioxide 23 mmol/L (23-31); Chloride 104 mmol/L (98-107); Estimated GFR-MDRD 65; Globulin 3.9 g/dL (2.4-3.5); Glucose 161 mg/dL (80-115); Potassium 3.9 mmol/L (3.5-5.1); Protein, Total 7.5 g/dL (6.0-8.3); Sodium 139 mmol/L (136-145)
[2017-10-18 17:18] LABS: CRP (Inflammatory) 4.27 mg/dL (= or < 0.5)
[2017-10-18] MEDS: Acetaminophen 325 MG TAB PO PRN (18:07)
[2017-10-18] MEDS: Venlafaxine HCl XR 150 MG CAP PO SCH (21:26)
[2017-10-18] MEDS: traZODone HCl 50 MG TAB PO PRN (21:27)
[2017-10-19] MEDS: Vancomycin HCl 750 MG in Sodium Chloride 0.9% 250 ML 250 ML IVPB SCH ×3 (01:37→17:53)
[2017-10-19] MEDS: Pregabalin 25 MG CAP PO SCH ×2 (08:28→21:07)
[2017-10-19] MEDS: Potassium Chloride 10 MEQ TAB PO SCH (08:28)
[2017-10-19] MEDS: Pregabalin 50 MG CAP PO SCH ×2 (08:29→21:08)
[2017-10-19] MEDS: MISOPROSTOL PO SCH ×2 (08:30→21:09)
[2017-10-19] MEDS: Cyanocobalamin (Vitamin B-12) 1,000 MCG TAB PO SCH (08:30)
[2017-10-19] MEDS: DICLOFENAC PO SCH ×2 (08:30→21:09)
[2017-10-19] MEDS: Clotrimazole 1% Cream 15 GM TUBE TOP SCH ×2 (08:30→21:09)
[2017-10-19] MEDS: Acetaminophen 325 MG TAB PO PRN (12:43)
[2017-10-19] MEDS: Venlafaxine HCl XR 150 MG CAP PO SCH (21:07)
[2017-10-19] MEDS: traZODone HCl 50 MG TAB PO PRN (21:09)
[2017-10-19] MEDS: METAXALONE 800 MG PO PRN (21:09)
[2017-10-20] MEDS: Vancomycin HCl 750 MG in Sodium Chloride 0.9% 250 ML 250 ML IVPB SCH ×3 (02:15→17:30)
[2017-10-20] MEDS: Pregabalin 50 MG CAP PO SCH ×2 (08:10→20:43)
[2017-10-20] MEDS: Pregabalin 25 MG CAP PO SCH ×2 (08:11→20:45)
[2017-10-20] MEDS: Potassium Chloride 10 MEQ TAB PO SCH (08:12)
[2017-10-20] MEDS: METAXALONE 800 MG PO PRN ×2 (08:12→20:46)
[2017-10-20] MEDS: Cyanocobalamin (Vitamin B-12) 1,000 MCG TAB PO SCH (08:12)
[2017-10-20] MEDS: MISOPROSTOL PO SCH ×2 (08:13→20:46)
[2017-10-20] MEDS: DICLOFENAC PO SCH ×2 (08:13→20:46)
[2017-10-20] MEDS: Clotrimazole 1% Cream 15 GM TUBE TOP SCH ×2 (08:15→20:48)
[2017-10-20 09:29] LABS: Vancomycin, Trough 23.5 ug/mL
[2017-10-20] MEDS: Acetaminophen 325 MG TAB PO PRN (15:29)
[2017-10-20] MEDS: Venlafaxine HCl XR 150 MG CAP PO SCH (20:45)
[2017-10-20] MEDS: traZODone HCl 50 MG TAB PO PRN (20:45)
[2017-10-21] MEDS: Vancomycin HCl 750 MG in Sodium Chloride 0.9% 250 ML 250 ML IVPB SCH ×3 (02:20→17:34)
[2017-10-21] MEDS: MISOPROSTOL PO SCH ×2 (08:52→20:58)
[2017-10-21] MEDS: METAXALONE 800 MG PO PRN ×2 (08:52→20:57)
[2017-10-21] MEDS: DICLOFENAC PO SCH ×2 (08:52→20:58)
[2017-10-21] MEDS: Cyanocobalamin (Vitamin B-12) 1,000 MCG TAB PO SCH (08:52)
[2017-10-21] MEDS: Potassium Chloride 10 MEQ TAB PO SCH (08:52)
[2017-10-21] MEDS: Pregabalin 50 MG CAP PO SCH ×2 (08:53→20:54)
[2017-10-21] MEDS: Pregabalin 25 MG CAP PO SCH ×2 (08:54→20:55)
[2017-10-21] MEDS: Clotrimazole 1% Cream 15 GM TUBE TOP SCH ×2 (08:55→20:56)
[2017-10-21] MEDS: Acetaminophen 325 MG TAB PO PRN (13:23)
[2017-10-21] MEDS: traZODone HCl 50 MG TAB PO PRN (20:57)
[2017-10-21] MEDS: Triamcinolone 0.1% Cream 15 GM TUBE TOP PRN (20:57)
[2017-10-21] MEDS: Venlafaxine HCl XR 150 MG CAP PO SCH (20:57)
[2017-10-22] MEDS: Vancomycin HCl 750 MG in Sodium Chloride 0.9% 250 ML 250 ML IVPB SCH ×3 (01:26→17:52)
[2017-10-22] MEDS: Pregabalin 25 MG CAP PO SCH ×2 (08:01→20:48)
[2017-10-22] MEDS: DICLOFENAC PO SCH ×2 (08:02→20:52)
[2017-10-22] MEDS: Clotrimazole 1% Cream 15 GM TUBE TOP SCH ×2 (08:02→20:47)
[2017-10-22] MEDS: Cyanocobalamin (Vitamin B-12) 1,000 MCG TAB PO SCH (08:02)
[2017-10-22] MEDS: Pregabalin 50 MG CAP PO SCH ×2 (08:02→20:50)
[2017-10-22] MEDS: Potassium Chloride 10 MEQ TAB PO SCH (08:02)
[2017-10-22] MEDS: MISOPROSTOL PO SCH ×2 (08:02→20:52)
[2017-10-22] MEDS: METAXALONE 800 MG PO PRN ×2 (08:04→20:51)
[2017-10-22] MEDS: Acetaminophen 325 MG TAB PO PRN (19:11)
[2017-10-22] MEDS: Triamcinolone 0.1% Cream 15 GM TUBE TOP PRN (20:47)
[2017-10-22] MEDS: Venlafaxine HCl XR 150 MG CAP PO SCH (20:48)
[2017-10-22] MEDS: traZODone HCl 50 MG TAB PO PRN (20:50)
[2017-10-23] MEDS: Vancomycin HCl 750 MG in Sodium Chloride 0.9% 250 ML 250 ML IVPB SCH ×3 (01:36→18:03)
[2017-10-23 09:17] LABS: Vancomycin, Trough 23.8 ug/mL
[2017-10-23] MEDS: Potassium Chloride 10 MEQ TAB PO SCH (09:30)
[2017-10-23] MEDS: Clotrimazole 1% Cream 15 GM TUBE TOP SCH ×2 (09:33→20:15)
[2017-10-23] MEDS: Pregabalin 25 MG CAP PO SCH ×2 (09:33→20:07)
[2017-10-23] MEDS: DICLOFENAC PO SCH ×2 (09:33→20:14)
[2017-10-23] MEDS: Cyanocobalamin (Vitamin B-12) 1,000 MCG TAB PO SCH (09:33)
[2017-10-23] MEDS: MISOPROSTOL PO SCH ×2 (09:33→20:14)
[2017-10-23] MEDS: Pregabalin 50 MG CAP PO SCH ×2 (09:34→20:12)
[2017-10-23] MEDS: Acetaminophen 325 MG TAB PO PRN (15:46)
[2017-10-23] MEDS: Venlafaxine HCl XR 150 MG CAP PO SCH (20:07)
[2017-10-23] MEDS: METAXALONE 800 MG PO PRN (20:13)
[2017-10-23] MEDS: traZODone HCl 50 MG TAB PO PRN (20:13)
[2017-10-23] MEDS: Triamcinolone 0.1% Cream 15 GM TUBE TOP PRN (20:15)
[2017-10-24] MEDS: Vancomycin HCl 750 MG in Sodium Chloride 0.9% 250 ML 250 ML IVPB SCH ×3 (01:30→17:44)
[2017-10-24] MEDS: Acetaminophen 325 MG TAB PO PRN ×2 (06:05→20:27)
[2017-10-24] MEDS: Potassium Chloride 10 MEQ TAB PO SCH (09:01)
[2017-10-24] MEDS: Clotrimazole 1% Cream 15 GM TUBE TOP SCH ×2 (09:01→21:00)
[2017-10-24] MEDS: Pregabalin 25 MG CAP PO SCH ×2 (09:01→20:26)
[2017-10-24] MEDS: Cyanocobalamin (Vitamin B-12) 1,000 MCG TAB PO SCH (09:02)
[2017-10-24] MEDS: DICLOFENAC PO SCH ×2 (09:02→20:24)
[2017-10-24] MEDS: Pregabalin 50 MG CAP PO SCH ×2 (09:02→20:26)
[2017-10-24] MEDS: MISOPROSTOL PO SCH ×2 (09:02→20:24)
[2017-10-24] MEDS: METAXALONE 800 MG PO PRN ×2 (09:03→20:25)
[2017-10-24 18:13] VITALS: BMI 32.1
[2017-10-24] MEDS: traZODone HCl 50 MG TAB PO PRN (20:24)
[2017-10-24] MEDS: Venlafaxine HCl XR 150 MG CAP PO SCH (20:27)
[2017-10-25] MEDS: Vancomycin HCl 750 MG in Sodium Chloride 0.9% 250 ML 250 ML IVPB SCH ×3 (01:15→17:29)
[2017-10-25] MEDS: Acetaminophen 325 MG TAB PO PRN ×4 (01:25→20:50)
[2017-10-25 05:14] LABS: #Basophils 0.1 thou/uL (0.0-0.2); #Eosinphils 0.8 thou/uL (0.0-0.7); #Monocytes 0.9 thou/uL (0.11-0.59); #Neutrophils 4.1 thou/uL (1.40-6.50); %Basophils 1.8 % (0.0-1.0); %Eosinophils 9.6 % (0.0-10.0); %Lymphocytes 25.2 % (21.0-51.0); %Monocytes 11.6 % (0.0-10.0); %Neutrophils 51.8 % (42.0-75.0); Hemoglobin 10.8 g/dL (12.0-16.0); Mean Corpuscular HGB CONC 33.4 g/dL (32.0-36.0); Mean Corpuscular Hemoglobin 27.5 pg (27.0-31.0); Mean Corpuscular Volume 82.1 fl (81.0-99.0); Platelet Count 302 thou/uL (130-400); RBC Distribution Width 13.3 % (11.5-14.5); Red Blood Cell (RBC) Count 3.94 mill/uL (4.20-5.40); White Blood Cell (WBC) Count 7.9 thou/uL (4.8-10.8)
[2017-10-25 05:28] LABS: AST (SGOT) 18 U/L (5-34); Albumin 3.3 g/dL (3.4-4.8); Alkaline Phosphatase 119 U/L (40-150); Anion Gap 16 mmol/L (10-20); BUN (Urea Nitrogen) 16 mg/dL (9.8-20.1); Bilirubin, Total 0.3 mg/dL (0.2-1.2); Calc. Creatinine Clearance 95 mL/min (70-130); Calcium 9.3 mg/dL (7.8-10.44); Carbon Dioxide 23 mmol/L (23-31); Chloride 107 mmol/L (98-107); Estimated GFR-MDRD 70; Globulin 3.5 g/dL (2.4-3.5); Glucose 95 mg/dL (80-115); Potassium 4.2 mmol/L (3.5-5.1); Protein, Total 6.8 g/dL (6.0-8.3); Sodium 142 mmol/L (136-145)
[2017-10-25 05:33] LABS: ALT (SGPT) 21 U/L (8-55)
[2017-10-25] MEDS: DICLOFENAC PO SCH ×2 (09:19→20:50)
[2017-10-25] MEDS: Potassium Chloride 10 MEQ TAB PO SCH (09:19)
[2017-10-25] MEDS: MISOPROSTOL PO SCH ×2 (09:19→20:50)
[2017-10-25] MEDS: Cyanocobalamin (Vitamin B-12) 1,000 MCG TAB PO SCH (09:19)
[2017-10-25] MEDS: METAXALONE 800 MG PO PRN ×2 (09:19→20:49)
[2017-10-25] MEDS: Pregabalin 25 MG CAP PO SCH ×2 (09:20→20:50)
[2017-10-25] MEDS: Pregabalin 50 MG CAP PO SCH ×2 (09:21→20:51)
[2017-10-25] MEDS: Clotrimazole 1% Cream 15 GM TUBE TOP SCH ×2 (09:26→20:49)
[2017-10-25 11:41] LABS: CRP (Inflammatory) 3.09 mg/dL (= or < 0.5)
[2017-10-25] MEDS: traZODone HCl 50 MG TAB PO PRN (20:52)
[2017-10-25] MEDS: Venlafaxine HCl XR 150 MG CAP PO SCH (20:52)
[2017-10-26] MEDS: Vancomycin HCl 750 MG in Sodium Chloride 0.9% 250 ML 250 ML IVPB SCH ×3 (02:21→17:53)
[2017-10-26] MEDS: Pregabalin 25 MG CAP PO SCH ×2 (09:02→21:04)
[2017-10-26] MEDS: Pregabalin 50 MG CAP PO SCH ×2 (09:02→21:03)
[2017-10-26] MEDS: Cyanocobalamin (Vitamin B-12) 1,000 MCG TAB PO SCH (09:02)
[2017-10-26] MEDS: Potassium Chloride 10 MEQ TAB PO SCH (09:03)
[2017-10-26] MEDS: DICLOFENAC PO SCH ×2 (09:04→21:01)
[2017-10-26] MEDS: Clotrimazole 1% Cream 15 GM TUBE TOP SCH ×2 (09:04→21:00)
[2017-10-26] MEDS: MISOPROSTOL PO SCH ×2 (09:04→21:01)
[2017-10-26] MEDS: Acetaminophen 325 MG TAB PO PRN (13:34)
[2017-10-26] MEDS: METAXALONE 800 MG PO PRN (21:01)
[2017-10-26] MEDS: traZODone HCl 50 MG TAB PO PRN (21:02)
[2017-10-26] MEDS: Venlafaxine HCl XR 150 MG CAP PO SCH (21:03)
[2017-10-27] MEDS: Vancomycin HCl 750 MG in Sodium Chloride 0.9% 250 ML 250 ML IVPB SCH (01:10)
[2017-10-27 06:54] VITALS: BP 148/71; TEMP 97.8
[2017-10-27] MEDS: Potassium Chloride 10 MEQ TAB PO SCH (08:40)
[2017-10-27] MEDS: Pregabalin 25 MG CAP PO SCH (08:41)
[2017-10-27] MEDS: Pregabalin 50 MG CAP PO SCH (08:41)
[2017-10-27] MEDS: DICLOFENAC PO SCH (08:42)
[2017-10-27] MEDS: Cyanocobalamin (Vitamin B-12) 1,000 MCG TAB PO SCH (08:42)
[2017-10-27] MEDS: Clotrimazole 1% Cream 15 GM TUBE TOP SCH (08:42)
[2017-10-27] MEDS: MISOPROSTOL PO SCH (08:42)
--- NOTE | 2017-10-29 09:46 | DIS ---
DATE OF ADMISSION: 09/24/2017 DATE OF DISCHARGE: 10/27/2017 PRIMARY DIAGNOSIS: Methicillin-resistant Staphylococcus aureus bacteremia. SECONDARY DIAGNOSES: 1. Status post L3 to L5 laminectomy, complicated by postoperative methicillin-resistant Staphylococc us aureus infection. 2. Insomnia. 3. Hypokalemia. 4. Generalized weakness. 5. Severe lumbar stenosis. HOSPITAL COURSE: This is a pleasant 67-year-old female that underwent L3 through L5 alba ctomy on 08/19/2017. The patient was discharged home and subsequently found to have a postoperative wound infection at approximately 4 weeks postop. The patient presented to [facility] on 09/15/2017, where she was found to have MRSA bacteremia coming from the site of her surgery. T he patient was taken to the operating room and underwent extensive washout and repair of the infected dural layer. She was started on IV vancomycin and transferred to [facility] for anticipated IV antibiotics and PT/OT. The patient has done well during her hospitalization. She has completed approximately 42 days of her vancomycin under the direction of Dr. Stein. She has had significant im provement in her white blood cell count from initial 15.2 to now 7.9. Her C-reactive protein has als o improved significantly from 13 down to 3.09. The only issue the patient had during her hospitaliza tion were some mild hypokalemia that was believed to be dietary related. She was started on a low-do se supplement and has maintained her potassium level since then. Additionally, the patient has been taking Ambien for years, but reportedly had some side effects of this while she was in the hospital. She was transitioned over to trazodone and has done much better on that since she has been in the [facility]. By day of discharge, the patient was ambulating 600 feet with a rolling walker. She has par ticipated well with physical therapy and occupational therapy and feels ready for discharge. Unfortu nately, the patient did follow up with her Infectious Disease doctor, Dr. Stein, today who determined that she needed 2 additional weeks of antibiotics to be arranged at his office. Per Dr. Stein' staf f, she will be receiving daptomycin for an additional 1-2 weeks once a day through outpatient infusio n. Her insurance has denied any further inpatient hospitalization. Per Dr. Stein, the goal is to anne ve her C-reactive protein to approximately 1 before she can stop the antibiotics. MEDICATIONS UPON DISCHARGE: 1. Pantoprazole 40 mg once daily. 2. Potassium chloride 10 mEq once daily. 3. Trazodone 100 mg once nightly as needed for insomnia. 4. Vitamin B complex 1 capsule each daily. 5. Venlafaxine 150 mg once nightly. 6. Lyrica 75 mg twice daily. 7. Skelaxin 800 mg twice daily. ACTIVITY UPON DISCHARGE: She will ambulate with a walker and continue outpatient physical therapy an d occupational therapy that has already been arranged. DIET UPON DISCHARGE: She will resume regular diet. FOLLOWUP: She will follow up with her PCP, Dr. Angeles, in 2 weeks as well as with Dr. Stein with in the next 1-2 days for continued IV antibiotics. DISPOSITION: The patient was discharged home with planned outpatient physical therapy and occupation al therapy and PCP followup.
== END 2017-10-27 15:45 | disposition home or self-care (01) | DRG 863 ==
LOC: MADMS 16:41
PROVIDERS: ADMIT Family Medicine; ATTEND Family Medicine
DX: T81.4XXA Infection following a procedure, initial encounter (principal); R53.1 Weakness; M79.7 Fibromyalgia; G89.4 Chronic pain syndrome; Z66 Do not resuscitate; Z79.899 Other long term (current) drug therapy; Z88.2 Allergy status to sulfonamides; G47.00 Insomnia, unspecified; E78.5 Hyperlipidemia, unspecified; D64.9 Anemia, unspecified; B37.9 Candidiasis, unspecified; B95.62 Methicillin resistant Staphylococcus aureus infection as the cause of diseases classified elsewhere
CPT/HCPCS: 36415; 36416; 80048; 80053; 80202; 83735; 84132; 85025; 86140; 90471; 90670; A4216; G0009; G8978-GP-CJ; G8978-GP-CK; G8979-GP-CI; J3370; J3480; J7050; Q0162

== ENCOUNTER 2017-12-30 16:17 | Inpatient (IN) | payer MEDICARE ==
[2017-12-30] MEDS ORDERED: Acetaminophen/Codeine 30-300mg Tablet PO PRN (20:05)
[2017-12-30] MEDS ORDERED: diphenhydrAMINE 25 MG CAP PO PRN (20:07)
[2017-12-30] MEDS ORDERED: Zolpidem Tartrate 5 MG TAB PO PRN (20:07)
[2017-12-30] MEDS ORDERED: Magnesium Citrate 300 ML BOT PO PRN (20:07)
[2017-12-30] MEDS ORDERED: Ondansetron ODT 4 MG TAB PO PRN (20:07)
[2017-12-30] MEDS: Vancomycin HCl 750 MG in Sodium Chloride 0.9% 250 ML 250 ML IVPB SCH (20:39)
[2017-12-30] MEDS: Pregabalin 50 MG CAP PO SCH (20:41)
[2017-12-30] MEDS: traZODone HCl 50 MG TAB PO SCH (20:43)
[2017-12-30] MEDS: Venlafaxine HCl XR 150 MG CAP PO SCH (20:43)
[2017-12-30] MEDS: Docusate 100 MG CAP PO SCH (20:43)
[2017-12-30] MEDS: MISOPROSTOL PO SCH (20:54)
[2017-12-30] MEDS: DICLOFENAC SODIUM PO SCH (20:54)
[2017-12-30] MEDS ORDERED: [UNRECOGNIZED DRUG - OTHER] IV SCH (21:00)
[2017-12-30] MEDS ORDERED: Vancomycin HCl 750 MG VIAL ONE (21:00)
[2017-12-30] MEDS ORDERED: VANCOMYCIN IV SCH (21:00)
[2017-12-30] MEDS ORDERED: Docusate 100 MG CAP PO SCH (21:00)
[2017-12-30] MEDS ORDERED: SOD CHLORIDE IV SCH (21:00)
[2017-12-30] MEDS: Vancomycin HCl 500 MG in Sodium Chloride 0.9% 100 ML IVPB SCH (21:02)
[2017-12-31 05:06] LABS: #Basophils 0.1 thou/uL (0.0-0.2); #Eosinphils 0.3 thou/uL (0.0-0.7); #Lymphocytes 1.8 thou/uL (1.20-3.40); #Monocytes 1.2 thou/uL (0.11-0.59); #Neutrophils 9.7 thou/uL (1.40-6.50); %Basophils 0.7 % (0.0-1.0); %Eosinophils 2.4 % (0.0-10.0); %Lymphocytes 14.1 % (21.0-51.0); %Monocytes 8.9 % (0.0-10.0); %Neutrophils 73.9 % (42.0-75.0); Hemoglobin 8.5 g/dL (12.0-16.0); Mean Corpuscular HGB CONC 32.3 g/dL (32.0-36.0); Mean Corpuscular Hemoglobin 25.6 pg (27.0-31.0); Mean Corpuscular Volume 79.1 fL (78.0-98.0); Mean Platelet Volume 5.1 fL (7.4-10.4); Platelet Count 446 thou/uL (130-400); RBC Distribution Width 15.8 % (11.5-14.5); Red Blood Cell (RBC) Count 3.31 mill/uL (4.20-5.40); White Blood Cell (WBC) Count 13.1 thou/uL (4.8-10.8)
--- NOTE | 2017-12-31 05:07 | HP ---
ADMITTING PHYSICIAN: Isidra Masterson MD PRIMARY CARE PHYSICIAN: Odilia Villafana DO REASON FOR ADMISSION: Skilled Rehabilitation at [facility] swing bed for long-term IV antibiotic for postoperative wound infection and gait instability. HISTORY OF PRESENT ILLNESS: Ms. Torres is a 67-year-old female with a past medical history significant for fibromyalgia; chronic pain; osteoarthritis; severe lumbar stenosis, status post laminectomy, performed in with complications requiring washout of the lumbar wound and debridement on 09/16/2017. The patient was on long-term IV antibiotics per ID during the August admission due to the extensive diskitis and osteomyelitis of the lumbar region. The patient was in inpatient rehabilitation for about 2 months and progressively improved gait, she was able to ambulate prior to discharge to her home. 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 The patient presented to the emergency room on the 12/21/17, complaining of severe lower back pain and bilateral leg weakness. She states right leg became paralyzed after the surgery, but for the past 3 weeks prior to admission, she progressively had increasing lower back pain and left lower leg pain and weakness. The patient was admitted to [facility] on 12/21/2017, she underwent a reopening of the lumbar incision irrigation and debridement of the intraspinal and paraspinal abscess, removal of L4 pedicle screw, removal of L3, L4, device replacement of L2-L5 and S1 pedicle screws, instrumented fusion L2- S1 by Dr. Rodriguez on 12/22/2017. Infectious Disease specialist, Dr. Stein was consulted and recommended IV antibiotic regimen for 12 weeks with followup of oral suppressive medication that after. The patient was seen by physical therapist during hospitalization and she was still unable to stand up on her feet. On 12/25, patient complained of left lower leg pain and was noted to have DVT in the left femoral vein. Since she could not be anticoagulated yet, on 12/26, patient underwent placement of IVC filter, per report with anticoagulation to start 9 days after. The patient was monitored closely and on 12/29, she was able to stand for about 2-3 minutes, but she complained of pain in the left hip and some hip flexor issues. Due to long-term need for IV antibiotic, the decision was made to come in to skilled rehabilitation for this. The patient was stabilized from an infectious standpoint and was transferred today for planned physical therapy as well as IV antibiotics. Upon evaluation of the patient, she states the pain is controlled with the fentanyl patch and the Banks as needed. The patient states she is unable to stand or ambulate yet she is using a Torres brace with physical therapy. She denies any fevers. She denies any chest pain. She denies any nausea or vomiting. Denies any abdominal pain. PAST MEDICAL HISTORY: Fibromyalgia; chronic pain; severe lumbar stenosis, status post laminectomy, L3-L4; postoperative MRSA infection, requiring lumbar wound and debridement and washout on 09/16/2017. SOCIAL HISTORY: The patient lives with her in [place]. She is a nonsmoker, denies alcohol use or illicit drug use. ALLERGIES: Allergic to SULFA, causes swelling. FAMILY HISTORY: Noncontributory. MEDICATIONS: Banks 1 tab p.r.n. mild pain, 2 tabs p.r.n. [id number] pain; fentanyl 50 mcg every 3 days; metaxalone 800 b.i.d.; diclofenac and misoprostol 1 tab b.i.d.; Lyrica have feet 150 at bedtime, 75 q.a.m.; trazodone 100 at bedtime; potassium chloride 10 mEq daily; Effexor 150 at bedtime; Ambien 5 at bedtime p.r.n. REVIEW OF SYSTEMS: Denies any fevers, weight gain, weight loss, malaise complaint. Denies any chest pain, shortness of breath, nausea, vomiting, abdominal pain, bloody stools, dysuria, hematuria, confusion, hallucinations, delusions, complains of left hip pain. Complains of generalized weakness and gait instability. PHYSICAL EXAMINATION: VITAL SIGNS: Temperature 99.4, pulse 103, respiration 20, O2 sat room air 95%, blood pressure 141/69. GENERAL APPEARANCE: Alert, awake, oriented x3, no apparent distress, lying comfortably in bed. HEENT: Pupils are round, equal, reactive to light. Extraocular muscles movement intact. Sclerae nonicteric. Moist oral mucous membranes. NECK: Supple. No JVD. CHEST: Clear to auscultation bilaterally. CARDIAC: S1, S2. No murmurs. ABDOMEN: Positive bowel sounds, soft, nontender, nondistended. EXTREMITIES: No cyanosis, clubbing, or edema. BACK: Midline incision with stitches in place. Mild surrounding erythema and no drainage. NEUROLOGIC: Left lower extremity strength 4/5, right lower extremity 5/5. PSYCHIATRIC: Patient is pleasant. No hallucinations, delusions or depression. ASSESSMENT: 1. Physical debility. 2. Osteomyelitis, status post washout. 3. Paraspinal abscess. 4. Long-term IV antibiotics. 5. Left deep venous thrombosis, status post IVC filter. PLAN: The patient is being admitted to [facility] bed for rehabilitation, gait strengthening, and long-term IV antibiotics, vancomycin two times a day for 3 months the patient is to follow up with Dr. Stein to help manage. Vancomycin trough weekly to be managed by pharmacy for now. Patient will have CBCs, BMP, CRP, and ESR weekly. We will resume pain medications with fentanyl, Banks, Lyrica as needed. Gastrointestinal prophylaxis, Protonix. DVT prophylaxis. CODE STATUS: DNR. DISPOSITION: Anticipate discharge home after 3 months of IV antibiotics. MCKINLEY
[2017-12-31 05:21] LABS: Anion Gap 18 mmol/L (10-20); BUN (Urea Nitrogen) 6 mg/dL (9.8-20.1); Calc. Creatinine Clearance 127 mL/min (70-130); Calcium 8.5 mg/dL (7.8-10.44); Carbon Dioxide 24 mmol/L (23-31); Chloride 103 mmol/L (98-107); Estimated GFR-MDRD Greater than 90; Glucose 100 mg/dL (80-115); Potassium 3.5 mmol/L (3.5-5.1); Sodium 141 mmol/L (136-145)
[2017-12-31] MEDS: DICLOFENAC SODIUM PO SCH ×2 (08:44→20:05)
[2017-12-31] MEDS: MISOPROSTOL PO SCH ×2 (08:44→20:05)
[2017-12-31] MEDS: Potassium Chloride 10 MEQ TAB PO SCH (08:45)
[2017-12-31] MEDS: Pregabalin 25 MG CAP PO SCH (08:45)
[2017-12-31] MEDS: Docusate 100 MG CAP PO SCH ×2 (08:45→20:04)
[2017-12-31] MEDS: Stress 600 With Zinc 1 TAB PO SCH (08:46)
[2017-12-31] MEDS: Vancomycin HCl 500 MG in Sodium Chloride 0.9% 100 ML IVPB SCH ×2 (08:47→21:14)
[2017-12-31] MEDS: Vancomycin HCl 750 MG in Sodium Chloride 0.9% 250 ML 250 ML IVPB SCH ×2 (08:47→20:00)
[2017-12-31] MEDS ORDERED: Non-Formulary Item 1 EACH (Vitamin B Complex [Vitamin B Complex] 1 EACH) PO SCH (09:00)
[2017-12-31] MEDS ORDERED: Prevnar 13-Val Conj/PF 0.5 ML SYRINGE IM ONE (09:00)
[2017-12-31] MEDS: HYDROcodone/Acetaminophen 5/325 mg Tablet PO PRN ×3 (09:07→17:35)
[2017-12-31 15:44] LABS: CRP (Inflammatory) 12.44 mg/dL (= or < 0.5)
[2017-12-31] MEDS: Pregabalin 50 MG CAP PO SCH (20:03)
[2017-12-31] MEDS: traZODone HCl 50 MG TAB PO SCH (20:04)
[2017-12-31] MEDS: Venlafaxine HCl XR 150 MG CAP PO SCH (20:04)
[2018-01-01] MEDS: MISOPROSTOL PO SCH ×2 (08:54→19:59)
[2018-01-01] MEDS: DICLOFENAC SODIUM PO SCH ×2 (08:54→19:59)
[2018-01-01] MEDS: Pregabalin 25 MG CAP PO SCH (08:54)
[2018-01-01] MEDS: Docusate 100 MG CAP PO SCH ×2 (08:55→20:01)
[2018-01-01] MEDS: Potassium Chloride 10 MEQ TAB PO SCH (08:55)
[2018-01-01] MEDS: Stress 600 With Zinc 1 TAB PO SCH (08:55)
[2018-01-01] MEDS: Vancomycin HCl 500 MG in Sodium Chloride 0.9% 100 ML IVPB SCH ×2 (08:55→21:24)
[2018-01-01] MEDS: Vancomycin HCl 750 MG in Sodium Chloride 0.9% 250 ML 250 ML IVPB SCH ×2 (08:56→20:01)
[2018-01-01] MEDS: HYDROcodone/Acetaminophen 5/325 mg Tablet PO PRN ×2 (10:08→21:24)
[2018-01-01] MEDS: fentaNYL 50 mcg/hour Patch TD SCH (12:07)
[2018-01-01] MEDS: Venlafaxine HCl XR 150 MG CAP PO SCH (19:59)
[2018-01-01] MEDS: Pregabalin 50 MG CAP PO SCH (19:59)
[2018-01-01] MEDS: traZODone HCl 50 MG TAB PO SCH (20:00)
[2018-01-02] MEDS: HYDROcodone/Acetaminophen 5/325 mg Tablet PO PRN ×3 (07:19→19:48)
[2018-01-02] MEDS: Vancomycin HCl 750 MG in Sodium Chloride 0.9% 250 ML 250 ML IVPB SCH ×2 (08:33→19:59)
[2018-01-02] MEDS: Docusate 100 MG CAP PO SCH ×2 (08:37→20:05)
[2018-01-02] MEDS: Stress 600 With Zinc 1 TAB PO SCH (08:37)
[2018-01-02] MEDS: Potassium Chloride 10 MEQ TAB PO SCH (08:37)
[2018-01-02] MEDS: Pregabalin 25 MG CAP PO SCH (08:38)
[2018-01-02] MEDS: DICLOFENAC SODIUM PO SCH ×2 (08:40→20:04)
[2018-01-02] MEDS: MISOPROSTOL PO SCH ×2 (08:40→20:04)
[2018-01-02] MEDS: Bisacodyl 10 MG SUPP PR PRN (08:42)
[2018-01-02] MEDS: Vancomycin HCl 500 MG in Sodium Chloride 0.9% 100 ML IVPB SCH ×2 (09:02→21:38)
[2018-01-02] MEDS ORDERED: VANCOMYCIN IVPB PRN (15:21)
[2018-01-02] MEDS: Ondansetron ODT 4 MG TAB PO PRN (15:57)
[2018-01-02] MEDS: Pregabalin 100 MG CAP PO SCH (19:59)
[2018-01-02] MEDS: Pregabalin 50 MG CAP PO SCH (20:01)
[2018-01-02] MEDS: traZODone HCl 50 MG TAB PO SCH (20:05)
[2018-01-02] MEDS: Venlafaxine HCl XR 150 MG CAP PO SCH (20:06)
[2018-01-02] MEDS ORDERED: PATIENT'S HOME MEDICATION PO SCH (21:00)
[2018-01-03] MEDS: HYDROcodone/Acetaminophen 5/325 mg Tablet PO PRN ×5 (05:19→22:13)
[2018-01-03 08:15] LABS: Vancomycin, Trough 24.6 ug/mL
[2018-01-03] MEDS: MISOPROSTOL PO SCH ×2 (09:19→21:01)
[2018-01-03] MEDS: DICLOFENAC SODIUM PO SCH ×2 (09:19→21:01)
[2018-01-03] MEDS: Pregabalin 25 MG CAP PO SCH (09:21)
[2018-01-03] MEDS: Pregabalin 50 MG CAP PO SCH ×2 (09:22→20:55)
[2018-01-03] MEDS: Stress 600 With Zinc 1 TAB PO SCH (09:24)
[2018-01-03] MEDS: Docusate 100 MG CAP PO SCH ×2 (09:24→20:58)
[2018-01-03] MEDS: Potassium Chloride 10 MEQ TAB PO SCH (09:24)
[2018-01-03] MEDS: Vancomycin HCl 750 MG in Sodium Chloride 0.9% 250 ML 250 ML IVPB SCH ×3 (10:47→10:51)
[2018-01-03] MEDS: Vancomycin HCl 1 GM in Sodium Chloride 0.9% 250 ML 250 ML IVPB SCH ×2 (10:49→21:02)
--- NOTE | 2018-01-03 14:28 | RAD ---
TWO VIEWS LEFT HIP: History: Left hip pain. FINDINGS: AP and frogleg views of the left hip obtained. The left hip is unremarkable. No evidence of fractures, subluxations, or bony lesions are seen. IMPRESSION: Normal two views left hip. POS: MASON
[2018-01-03] MEDS: Pregabalin 100 MG CAP PO SCH (20:53)
[2018-01-03] MEDS: traZODone HCl 50 MG TAB PO SCH (20:58)
[2018-01-03] MEDS: Venlafaxine HCl XR 150 MG CAP PO SCH (21:00)
[2018-01-04] MEDS: Ondansetron ODT 4 MG TAB PO PRN (08:03)
[2018-01-04] MEDS: HYDROcodone/Acetaminophen 5/325 mg Tablet PO PRN ×4 (08:06→21:08)
[2018-01-04] MEDS: Pregabalin 50 MG CAP PO SCH ×2 (09:04→20:45)
[2018-01-04] MEDS: Docusate 100 MG CAP PO SCH ×2 (09:04→20:42)
[2018-01-04] MEDS: Potassium Chloride 10 MEQ TAB PO SCH (09:04)
[2018-01-04] MEDS: Pregabalin 25 MG CAP PO SCH (09:04)
[2018-01-04] MEDS: Stress 600 With Zinc 1 TAB PO SCH (09:04)
[2018-01-04] MEDS: MISOPROSTOL PO SCH ×2 (09:05→20:47)
[2018-01-04] MEDS: DICLOFENAC SODIUM PO SCH ×2 (09:05→20:47)
[2018-01-04] MEDS: Vancomycin HCl 1 GM in Sodium Chloride 0.9% 250 ML 250 ML IVPB SCH ×2 (10:36→22:04)
[2018-01-04] MEDS: fentaNYL 50 mcg/hour Patch TD SCH (12:10)
[2018-01-04] MEDS: Bisacodyl 10 MG SUPP PR PRN (15:26)
[2018-01-04] MEDS: Pregabalin 100 MG CAP PO SCH (20:43)
[2018-01-04] MEDS: Venlafaxine HCl XR 150 MG CAP PO SCH (20:47)
[2018-01-04] MEDS: traZODone HCl 50 MG TAB PO SCH (20:48)
[2018-01-04 21:42] LABS: Vancomycin, Trough 19.6 ug/mL
[2018-01-05] MEDS: HYDROcodone/Acetaminophen 5/325 mg Tablet PO PRN ×4 (07:00→20:47)
[2018-01-05] MEDS: MISOPROSTOL PO SCH ×2 (08:00→21:32)
[2018-01-05] MEDS: DICLOFENAC SODIUM PO SCH ×2 (08:00→21:32)
[2018-01-05] MEDS: Stress 600 With Zinc 1 TAB PO SCH (08:02)
[2018-01-05] MEDS: Docusate 100 MG CAP PO SCH ×2 (08:02→21:33)
[2018-01-05] MEDS: Pregabalin 50 MG CAP PO SCH ×2 (08:02→20:35)
[2018-01-05] MEDS: Pregabalin 25 MG CAP PO SCH (08:02)
[2018-01-05] MEDS: Potassium Chloride 10 MEQ TAB PO SCH (08:03)
[2018-01-05] MEDS: Vancomycin HCl 1 GM in Sodium Chloride 0.9% 250 ML 250 ML IVPB SCH ×2 (10:30→21:33)
[2018-01-05] MEDS: Bisacodyl 10 MG SUPP PR PRN (16:11)
[2018-01-05] MEDS: Venlafaxine HCl XR 150 MG CAP PO SCH (20:36)
[2018-01-05] MEDS: Pregabalin 100 MG CAP PO SCH (20:37)
[2018-01-05] MEDS: traZODone HCl 50 MG TAB PO SCH (20:38)
[2018-01-06] MEDS: HYDROcodone/Acetaminophen 5/325 mg Tablet PO PRN ×3 (07:32→20:47)
[2018-01-06] MEDS: Pregabalin 25 MG CAP PO SCH (09:37)
[2018-01-06] MEDS: Docusate 100 MG CAP PO SCH ×2 (09:38→20:41)
[2018-01-06] MEDS: Stress 600 With Zinc 1 TAB PO SCH (09:38)
[2018-01-06] MEDS: Pregabalin 50 MG CAP PO SCH ×2 (09:38→20:45)
[2018-01-06] MEDS: Potassium Chloride 10 MEQ TAB PO SCH (09:38)
[2018-01-06] MEDS: DICLOFENAC SODIUM PO SCH ×2 (09:39→20:42)
[2018-01-06] MEDS: MISOPROSTOL PO SCH ×2 (09:39→20:42)
[2018-01-06 10:10] LABS: Vancomycin, Trough 15.8 ug/mL
[2018-01-06] MEDS: Vancomycin HCl 1 GM in Sodium Chloride 0.9% 250 ML 250 ML IVPB SCH ×2 (10:52→21:39)
[2018-01-06] MEDS: Ondansetron ODT 4 MG TAB PO PRN (11:14)
[2018-01-06] MEDS: Pregabalin 100 MG CAP PO SCH (20:44)
[2018-01-06] MEDS: Venlafaxine HCl XR 150 MG CAP PO SCH (20:46)
[2018-01-06] MEDS: traZODone HCl 50 MG TAB PO SCH (20:47)
[2018-01-07] MEDS: HYDROcodone/Acetaminophen 5/325 mg Tablet PO PRN ×3 (09:04→19:52)
[2018-01-07] MEDS: DICLOFENAC SODIUM PO SCH ×2 (09:05→19:53)
[2018-01-07] MEDS: MISOPROSTOL PO SCH ×2 (09:05→19:53)
[2018-01-07] MEDS: Pregabalin 25 MG CAP PO SCH (09:06)
[2018-01-07] MEDS: Docusate 100 MG CAP PO SCH ×2 (09:08→19:53)
[2018-01-07] MEDS: Potassium Chloride 10 MEQ TAB PO SCH (09:08)
[2018-01-07] MEDS: Pregabalin 50 MG CAP PO SCH ×2 (09:08→19:50)
[2018-01-07] MEDS: Stress 600 With Zinc 1 TAB PO SCH (09:08)
[2018-01-07] MEDS: Vancomycin HCl 1 GM in Sodium Chloride 0.9% 250 ML 250 ML IVPB SCH ×2 (11:00→22:33)
[2018-01-07] MEDS: fentaNYL 50 mcg/hour Patch TD SCH (12:15)
[2018-01-07] MEDS: Ondansetron ODT 4 MG TAB PO PRN (14:29)
[2018-01-07] MEDS: Pregabalin 100 MG CAP PO SCH (19:51)
[2018-01-07] MEDS: Venlafaxine HCl XR 150 MG CAP PO SCH (19:53)
[2018-01-07] MEDS: traZODone HCl 50 MG TAB PO SCH (19:53)
[2018-01-08] MEDS: Pregabalin 25 MG CAP PO SCH (07:56)
[2018-01-08] MEDS: Docusate 100 MG CAP PO SCH ×2 (07:56→19:56)
[2018-01-08] MEDS: Stress 600 With Zinc 1 TAB PO SCH (07:57)
[2018-01-08] MEDS: Pregabalin 50 MG CAP PO SCH ×2 (07:58→19:55)
[2018-01-08] MEDS: HYDROcodone/Acetaminophen 5/325 mg Tablet PO PRN ×4 (07:58→22:30)
[2018-01-08] MEDS: Potassium Chloride 10 MEQ TAB PO SCH (07:59)
[2018-01-08] MEDS: MISOPROSTOL PO SCH ×2 (07:59→19:54)
[2018-01-08] MEDS: DICLOFENAC SODIUM PO SCH ×2 (07:59→19:54)
[2018-01-08 09:27] LABS: Vancomycin, Trough 18.7 ug/mL
[2018-01-08] MEDS: Vancomycin HCl 1 GM in Sodium Chloride 0.9% 250 ML 250 ML IVPB SCH ×2 (10:55→22:30)
[2018-01-08] MEDS: Pregabalin 100 MG CAP PO SCH (19:54)
[2018-01-08] MEDS: Venlafaxine HCl XR 150 MG CAP PO SCH (19:56)
[2018-01-08] MEDS: traZODone HCl 50 MG TAB PO SCH (19:56)
[2018-01-09] MEDS: Pregabalin 25 MG CAP PO SCH (08:09)
[2018-01-09] MEDS: Stress 600 With Zinc 1 TAB PO SCH (08:10)
[2018-01-09] MEDS: Docusate 100 MG CAP PO SCH ×2 (08:10→21:22)
[2018-01-09] MEDS: Potassium Chloride 10 MEQ TAB PO SCH (08:10)
[2018-01-09] MEDS: Pregabalin 50 MG CAP PO SCH ×2 (08:11→21:30)
[2018-01-09] MEDS: HYDROcodone/Acetaminophen 5/325 mg Tablet PO PRN ×4 (08:11→23:56)
[2018-01-09] MEDS: DICLOFENAC SODIUM PO SCH ×2 (08:12→21:47)
[2018-01-09] MEDS: MISOPROSTOL PO SCH ×2 (08:12→21:47)
[2018-01-09] MEDS: Vancomycin HCl 1 GM in Sodium Chloride 0.9% 250 ML 250 ML IVPB SCH ×2 (11:19→21:27)
[2018-01-09] MEDS: Venlafaxine HCl XR 150 MG CAP PO SCH (21:26)
[2018-01-09] MEDS: traZODone HCl 50 MG TAB PO SCH (21:26)
[2018-01-09] MEDS: Pregabalin 100 MG CAP PO SCH (21:32)
[2018-01-10 06:05] LABS: #Basophils 0.1 thou/uL (0.0-0.2); #Eosinphils 0.6 thou/uL (0.0-0.7); #Monocytes 0.9 thou/uL (0.11-0.59); #Neutrophils 6.5 thou/uL (1.40-6.50); %Basophils 0.9 % (0.0-1.0); %Eosinophils 5.8 % (0.0-10.0); %Lymphocytes 19.4 % (21.0-51.0); %Monocytes 9.1 % (0.0-10.0); %Neutrophils 64.8 % (42.0-75.0); Hemoglobin 8.9 g/dL (12.0-16.0); Mean Corpuscular HGB CONC 32.4 g/dL (32.0-36.0); Mean Corpuscular Hemoglobin 25.7 pg (27.0-31.0); Mean Corpuscular Volume 79.3 fL (78.0-98.0); Mean Platelet Volume 5.3 fL (7.4-10.4); Platelet Count 414 thou/uL (130-400); RBC Distribution Width 15.9 % (11.5-14.5); Red Blood Cell (RBC) Count 3.48 mill/uL (4.20-5.40); White Blood Cell (WBC) Count 10.1 thou/uL (4.8-10.8)
[2018-01-10 06:11] LABS: Anion Gap 15 mmol/L (10-20); BUN (Urea Nitrogen) 8 mg/dL (9.8-20.1); Calc. Creatinine Clearance 113 mL/min (70-130); Calcium 8.5 mg/dL (7.8-10.44); Carbon Dioxide 25 mmol/L (23-31); Chloride 105 mmol/L (98-107); Estimated GFR-MDRD 90; Glucose 89 mg/dL (80-115); Potassium 4.1 mmol/L (3.5-5.1); Sodium 141 mmol/L (136-145)
[2018-01-10] MEDS: MISOPROSTOL PO SCH ×2 (08:29→20:40)
[2018-01-10] MEDS: Pregabalin 50 MG CAP PO SCH ×2 (08:29→20:30)
[2018-01-10] MEDS: DICLOFENAC SODIUM PO SCH ×2 (08:29→20:40)
[2018-01-10] MEDS: Potassium Chloride 10 MEQ TAB PO SCH (08:30)
[2018-01-10] MEDS: Docusate 100 MG CAP PO SCH ×2 (08:30→20:37)
[2018-01-10] MEDS: Stress 600 With Zinc 1 TAB PO SCH (08:30)
[2018-01-10] MEDS: HYDROcodone/Acetaminophen 5/325 mg Tablet PO PRN ×4 (08:30→21:36)
[2018-01-10] MEDS: Pregabalin 25 MG CAP PO SCH (08:30)
[2018-01-10] MEDS: Vancomycin HCl 1 GM in Sodium Chloride 0.9% 250 ML 250 ML IVPB SCH ×2 (10:36→21:26)
[2018-01-10] MEDS ORDERED: Activase 2 MG VIAL CATH SCH ×3 (11:30→17:00)
[2018-01-10] MEDS: fentaNYL 50 mcg/hour Patch TD SCH (12:41)
[2018-01-10 12:48] LABS: CRP (Inflammatory) 10.22 mg/dL (= or < 0.5)
[2018-01-10] MEDS ORDERED: Sterile Water 10 ML ONE ×2 (13:24→17:25)
[2018-01-10] MEDS ORDERED: Sterile Water 10 ML VIAL IVP SCH (16:45)
[2018-01-10] MEDS: Venlafaxine HCl XR 150 MG CAP PO SCH (20:37)
[2018-01-10] MEDS: Pregabalin 100 MG CAP PO SCH (20:38)
[2018-01-10] MEDS: traZODone HCl 50 MG TAB PO SCH (20:38)
[2018-01-11] MEDS: HYDROcodone/Acetaminophen 5/325 mg Tablet PO PRN ×4 (07:00→21:49)
[2018-01-11] MEDS: Pregabalin 25 MG CAP PO SCH (11:43)
[2018-01-11] MEDS: MISOPROSTOL PO SCH ×2 (11:43→19:55)
[2018-01-11] MEDS: Docusate 100 MG CAP PO SCH ×2 (11:43→19:57)
[2018-01-11] MEDS: DICLOFENAC SODIUM PO SCH ×2 (11:43→19:55)
[2018-01-11] MEDS: Pregabalin 50 MG CAP PO SCH ×2 (11:44→19:57)
[2018-01-11] MEDS: Stress 600 With Zinc 1 TAB PO SCH (11:44)
[2018-01-11] MEDS: Potassium Chloride 10 MEQ TAB PO SCH (11:44)
[2018-01-11] MEDS: Vancomycin HCl 1 GM in Sodium Chloride 0.9% 250 ML 250 ML IVPB SCH ×2 (11:45→21:50)
[2018-01-11] MEDS: traZODone HCl 50 MG TAB PO SCH (19:56)
[2018-01-11] MEDS: Venlafaxine HCl XR 150 MG CAP PO SCH (19:56)
[2018-01-11] MEDS: Pregabalin 100 MG CAP PO SCH (19:58)
[2018-01-12] MEDS: HYDROcodone/Acetaminophen 5/325 mg Tablet PO PRN ×3 (08:34→22:00)
[2018-01-12] MEDS: Potassium Chloride 10 MEQ TAB PO SCH (08:34)
[2018-01-12] MEDS: Stress 600 With Zinc 1 TAB PO SCH (08:34)
[2018-01-12] MEDS: Docusate 100 MG CAP PO SCH ×2 (08:34→20:03)
[2018-01-12] MEDS: DICLOFENAC SODIUM PO SCH ×2 (08:36→20:04)
[2018-01-12] MEDS: Pregabalin 50 MG CAP PO SCH ×2 (08:36→20:03)
[2018-01-12] MEDS: MISOPROSTOL PO SCH ×2 (08:36→20:04)
[2018-01-12] MEDS: Pregabalin 25 MG CAP PO SCH (08:37)
[2018-01-12] MEDS: Vancomycin HCl 1 GM in Sodium Chloride 0.9% 250 ML 250 ML IVPB SCH ×2 (11:06→22:01)
[2018-01-12] MEDS: Ondansetron ODT 4 MG TAB PO PRN (14:43)
[2018-01-12] MEDS: Venlafaxine HCl XR 150 MG CAP PO SCH (20:01)
[2018-01-12] MEDS: Pregabalin 100 MG CAP PO SCH (20:04)
[2018-01-12] MEDS: traZODone HCl 50 MG TAB PO SCH (21:59)
[2018-01-13] MEDS: HYDROcodone/Acetaminophen 5/325 mg Tablet PO PRN ×2 (06:03→22:45)
[2018-01-13] MEDS: DICLOFENAC SODIUM PO SCH ×2 (08:30→20:18)
[2018-01-13] MEDS: Docusate 100 MG CAP PO SCH ×2 (08:30→20:19)
[2018-01-13] MEDS: MISOPROSTOL PO SCH ×2 (08:30→20:18)
[2018-01-13] MEDS: Potassium Chloride 10 MEQ TAB PO SCH (08:30)
[2018-01-13] MEDS: Stress 600 With Zinc 1 TAB PO SCH (08:30)
[2018-01-13] MEDS: Pregabalin 25 MG CAP PO SCH (08:31)
[2018-01-13] MEDS: Pregabalin 50 MG CAP PO SCH ×2 (08:32→20:23)
[2018-01-13] MEDS: Vancomycin HCl 1 GM in Sodium Chloride 0.9% 250 ML 250 ML IVPB SCH ×2 (10:05→22:29)
[2018-01-13] MEDS: fentaNYL 50 mcg/hour Patch TD SCH (12:51)
[2018-01-13] MEDS ORDERED: Cyanocobalamin (Vitamin B-12) 1,000 MCG TAB PO SCH (15:00)
[2018-01-13] MEDS: Venlafaxine HCl XR 150 MG CAP PO SCH (20:20)
[2018-01-13] MEDS: traZODone HCl 50 MG TAB PO SCH (20:20)
[2018-01-13] MEDS: Pregabalin 100 MG CAP PO SCH (20:25)
[2018-01-14] MEDS: HYDROcodone/Acetaminophen 5/325 mg Tablet PO PRN ×2 (05:44→22:01)
[2018-01-14] MEDS: Pregabalin 50 MG CAP PO SCH ×2 (08:03→20:40)
[2018-01-14] MEDS: Pregabalin 25 MG CAP PO SCH (08:03)
[2018-01-14] MEDS: Cyanocobalamin (Vitamin B-12) 1,000 MCG TAB PO SCH (08:04)
[2018-01-14] MEDS: Potassium Chloride 10 MEQ TAB PO SCH (08:04)
[2018-01-14] MEDS: MISOPROSTOL PO SCH ×2 (08:04→20:38)
[2018-01-14] MEDS: DICLOFENAC SODIUM PO SCH ×2 (08:04→20:38)
[2018-01-14] MEDS: Stress 600 With Zinc 1 TAB PO SCH (08:04)
[2018-01-14] MEDS: Docusate 100 MG CAP PO SCH ×2 (08:04→20:37)
[2018-01-14] MEDS: Vancomycin HCl 1 GM in Sodium Chloride 0.9% 250 ML 250 ML IVPB SCH ×2 (10:09→22:00)
[2018-01-14] MEDS ORDERED: Fluconazole 100 MG TAB PO SCH (10:15)
[2018-01-14] MEDS: traZODone HCl 50 MG TAB PO SCH (20:37)
[2018-01-14] MEDS: Venlafaxine HCl XR 150 MG CAP PO SCH (20:38)
[2018-01-14] MEDS: Pregabalin 100 MG CAP PO SCH (20:39)
[2018-01-14] MEDS: fentaNYL 50 mcg/hour Patch TD SCH (22:22)
[2018-01-15 04:31] LABS: Bilirubin Negative (Negative); Blood, Urine Trace (Negative); Glucose, Urine (Dipstick) Negative (Negative); Leukocyte Large (Negative); Nitrite Negative (Negative); Protein, Urine (Dipstick) Negative (Neg-Trace); Urobilinogen 0.2 mg/dL (0.2-1.0)
[2018-01-15 04:33] LABS: Clarity Hazy (Clear)
[2018-01-15 04:34] LABS: Bacteria/HPF 2+ HPF (None Seen); Squamous Epithelial 0-3 HPF (0-3)
[2018-01-15] MEDS: Potassium Chloride 10 MEQ TAB PO SCH (08:05)
[2018-01-15] MEDS: Stress 600 With Zinc 1 TAB PO SCH (08:05)
[2018-01-15] MEDS: Docusate 100 MG CAP PO SCH ×2 (08:05→20:52)
[2018-01-15] MEDS: Cyanocobalamin (Vitamin B-12) 1,000 MCG TAB PO SCH (08:05)
[2018-01-15] MEDS: DICLOFENAC SODIUM PO SCH ×2 (08:06→20:55)
[2018-01-15] MEDS: MISOPROSTOL PO SCH ×2 (08:06→20:55)
[2018-01-15] MEDS: Pregabalin 25 MG CAP PO SCH (08:07)
[2018-01-15] MEDS: Pregabalin 50 MG CAP PO SCH ×2 (08:07→20:53)
[2018-01-15 09:19] LABS: Vancomycin, Trough 22.3 ug/mL
[2018-01-15] MEDS: HYDROcodone/Acetaminophen 5/325 mg Tablet PO PRN ×2 (09:21→18:11)
[2018-01-15] MEDS: Vancomycin HCl 1 GM in Sodium Chloride 0.9% 250 ML 250 ML IVPB SCH (11:09)
[2018-01-15] MEDS: Vancomycin HCl 750 MG in Sodium Chloride 0.9% 250 ML 250 ML IVPB SCH (12:06)
[2018-01-15] MEDS ORDERED: Cipro 250 MG TAB PO SCH (14:00)
[2018-01-15] MEDS ORDERED: Sterile Water 10 ML VIAL FS SCH (15:21)
[2018-01-15] MEDS ORDERED: Activase 2 MG VIAL CATH SCH (15:21)
[2018-01-15] MEDS ORDERED: Sterile Water 10 ML ONE (16:24)
[2018-01-15] MEDS: traZODone HCl 50 MG TAB PO SCH (20:52)
[2018-01-15] MEDS: Cipro 250 MG TAB PO SCH (20:52)
[2018-01-15] MEDS: Venlafaxine HCl XR 150 MG CAP PO SCH (20:52)
[2018-01-15] MEDS: Pregabalin 100 MG CAP PO SCH (20:55)
[2018-01-16] MEDS: Cipro 250 MG TAB PO SCH ×2 (05:32→20:54)
[2018-01-16] MEDS: Stress 600 With Zinc 1 TAB PO SCH (08:27)
[2018-01-16] MEDS: Cyanocobalamin (Vitamin B-12) 1,000 MCG TAB PO SCH (08:27)
[2018-01-16] MEDS: Pregabalin 25 MG CAP PO SCH (08:27)
[2018-01-16] MEDS: Pregabalin 50 MG CAP PO SCH ×2 (08:28→21:05)
[2018-01-16] MEDS: MISOPROSTOL PO SCH ×2 (08:29→20:53)
[2018-01-16] MEDS: Docusate 100 MG CAP PO SCH ×2 (08:29→20:54)
[2018-01-16] MEDS: DICLOFENAC SODIUM PO SCH ×2 (08:29→20:53)
[2018-01-16] MEDS: Potassium Chloride 10 MEQ TAB PO SCH (08:29)
[2018-01-16] MEDS: Vancomycin HCl 750 MG in Sodium Chloride 0.9% 250 ML 250 ML IVPB SCH ×2 (12:05)
[2018-01-16] MEDS: HYDROcodone/Acetaminophen 5/325 mg Tablet PO PRN ×2 (12:07→23:27)
[2018-01-16] MEDS: Venlafaxine HCl XR 150 MG CAP PO SCH (20:55)
[2018-01-16] MEDS: Pregabalin 100 MG CAP PO SCH (20:55)
[2018-01-16] MEDS: traZODone HCl 50 MG TAB PO SCH (20:56)
[2018-01-16 23:20] LABS: Vancomycin, Trough 18.7 ug/mL
[2018-01-17] MEDS: Vancomycin HCl 750 MG in Sodium Chloride 0.9% 250 ML 250 ML IVPB SCH ×3 (00:40→23:45)
[2018-01-17] MEDS: Cipro 250 MG TAB PO SCH ×2 (05:42→20:33)
[2018-01-17] MEDS: Stress 600 With Zinc 1 TAB PO SCH (08:28)
[2018-01-17] MEDS: DICLOFENAC SODIUM PO SCH ×2 (08:29→20:38)
[2018-01-17] MEDS: Docusate 100 MG CAP PO SCH ×2 (08:29→20:33)
[2018-01-17] MEDS: Potassium Chloride 10 MEQ TAB PO SCH (08:29)
[2018-01-17] MEDS: Cyanocobalamin (Vitamin B-12) 1,000 MCG TAB PO SCH (08:29)
[2018-01-17] MEDS: MISOPROSTOL PO SCH ×2 (08:29→20:38)
[2018-01-17] MEDS: Pregabalin 25 MG CAP PO SCH (08:30)
[2018-01-17] MEDS: Pregabalin 50 MG CAP PO SCH ×2 (08:30→20:34)
[2018-01-17] MEDS: HYDROcodone/Acetaminophen 5/325 mg Tablet PO PRN ×2 (13:54→21:14)
[2018-01-17] MEDS: traZODone HCl 50 MG TAB PO SCH (20:33)
[2018-01-17] MEDS: Venlafaxine HCl XR 150 MG CAP PO SCH (20:33)
[2018-01-17] MEDS: Pregabalin 100 MG CAP PO SCH (20:36)
[2018-01-17] MEDS: fentaNYL 50 mcg/hour Patch TD SCH (22:47)
[2018-01-18] MEDS: Cipro 250 MG TAB PO SCH ×2 (05:55→20:37)
[2018-01-18] MEDS: MISOPROSTOL PO SCH ×2 (09:10→20:37)
[2018-01-18] MEDS: DICLOFENAC SODIUM PO SCH ×2 (09:10→20:37)
[2018-01-18] MEDS: Docusate 100 MG CAP PO SCH ×2 (09:11→20:37)
[2018-01-18] MEDS: Cyanocobalamin (Vitamin B-12) 1,000 MCG TAB PO SCH (09:11)
[2018-01-18] MEDS: Stress 600 With Zinc 1 TAB PO SCH (09:11)
[2018-01-18] MEDS: Pregabalin 25 MG CAP PO SCH (09:11)
[2018-01-18] MEDS: Pregabalin 50 MG CAP PO SCH ×2 (09:12→20:41)
[2018-01-18] MEDS: Potassium Chloride 10 MEQ TAB PO SCH (09:12)
[2018-01-18] MEDS: HYDROcodone/Acetaminophen 5/325 mg Tablet PO PRN ×3 (11:33→20:44)
[2018-01-18 11:50] LABS: Vancomycin, Trough 17.4 ug/mL
[2018-01-18] MEDS: Vancomycin HCl 750 MG in Sodium Chloride 0.9% 250 ML 250 ML IVPB SCH ×2 (13:16→17:52)
[2018-01-18] MEDS ORDERED: Vancomycin HCl 750 MG in Sodium Chloride 0.9% 250 ML 250 ML IVPB SCH (14:00)
[2018-01-18] MEDS: Apixaban 5 MG TAB PO SCH (20:37)
[2018-01-18] MEDS: Venlafaxine HCl XR 150 MG CAP PO SCH (20:39)
[2018-01-18] MEDS: traZODone HCl 50 MG TAB PO SCH (20:39)
[2018-01-18] MEDS: Pregabalin 100 MG CAP PO SCH (20:40)
[2018-01-19] MEDS: Vancomycin HCl 750 MG in Sodium Chloride 0.9% 250 ML 250 ML IVPB SCH ×2 (05:18→17:19)
[2018-01-19] MEDS: Cipro 250 MG TAB PO SCH ×2 (05:19→20:22)
[2018-01-19] MEDS: Potassium Chloride 10 MEQ TAB PO SCH (08:29)
[2018-01-19] MEDS: Docusate 100 MG CAP PO SCH ×2 (08:29→20:22)
[2018-01-19] MEDS: Stress 600 With Zinc 1 TAB PO SCH (08:29)
[2018-01-19] MEDS: Cyanocobalamin (Vitamin B-12) 1,000 MCG TAB PO SCH (08:29)
[2018-01-19] MEDS: Apixaban 5 MG TAB PO SCH ×2 (08:29→20:22)
[2018-01-19] MEDS: Pregabalin 25 MG CAP PO SCH (08:30)
[2018-01-19] MEDS: Pregabalin 50 MG CAP PO SCH ×2 (08:31→20:24)
[2018-01-19] MEDS: DICLOFENAC SODIUM PO SCH ×2 (08:32→20:21)
[2018-01-19] MEDS: MISOPROSTOL PO SCH ×2 (08:32→20:21)
[2018-01-19] MEDS: HYDROcodone/Acetaminophen 5/325 mg Tablet PO PRN ×2 (14:16→20:25)
[2018-01-19] MEDS: traZODone HCl 50 MG TAB PO SCH (20:23)
[2018-01-19] MEDS: Venlafaxine HCl XR 150 MG CAP PO SCH (20:23)
[2018-01-19] MEDS: Pregabalin 100 MG CAP PO SCH (20:25)
[2018-01-20] MEDS: Vancomycin HCl 750 MG in Sodium Chloride 0.9% 250 ML 250 ML IVPB SCH ×2 (05:46→18:06)
[2018-01-20 06:13] LABS: Hemoglobin 8.6 g/dL (12.0-16.0); Platelet Count 365 thou/uL (130-400)
[2018-01-20] MEDS: MISOPROSTOL PO SCH ×2 (08:20→21:59)
[2018-01-20] MEDS: DICLOFENAC SODIUM PO SCH ×2 (08:20→21:59)
[2018-01-20] MEDS: Pregabalin 25 MG CAP PO SCH (08:20)
[2018-01-20] MEDS: Pregabalin 50 MG CAP PO SCH ×2 (08:22→21:39)
[2018-01-20] MEDS: Stress 600 With Zinc 1 TAB PO SCH (08:23)
[2018-01-20] MEDS: Docusate 100 MG CAP PO SCH ×2 (08:23→21:38)
[2018-01-20] MEDS: Potassium Chloride 10 MEQ TAB PO SCH (08:23)
[2018-01-20] MEDS: Apixaban 5 MG TAB PO SCH ×2 (08:23→21:38)
[2018-01-20] MEDS: Cyanocobalamin (Vitamin B-12) 1,000 MCG TAB PO SCH (08:23)
[2018-01-20] MEDS: HYDROcodone/Acetaminophen 5/325 mg Tablet PO PRN ×3 (08:27→21:43)
[2018-01-20] MEDS: Venlafaxine HCl XR 150 MG CAP PO SCH (21:38)
[2018-01-20] MEDS: traZODone HCl 50 MG TAB PO SCH (21:38)
[2018-01-20] MEDS: Pregabalin 100 MG CAP PO SCH (21:39)
[2018-01-21] MEDS: fentaNYL 50 mcg/hour Patch TD SCH (00:15)
[2018-01-21] MEDS: Vancomycin HCl 750 MG in Sodium Chloride 0.9% 250 ML 250 ML IVPB SCH ×2 (05:59→18:13)
[2018-01-21] MEDS: Docusate 100 MG CAP PO SCH ×2 (08:19→20:29)
[2018-01-21] MEDS: Cyanocobalamin (Vitamin B-12) 1,000 MCG TAB PO SCH (08:19)
[2018-01-21] MEDS: Apixaban 5 MG TAB PO SCH ×2 (08:19→20:29)
[2018-01-21] MEDS: Stress 600 With Zinc 1 TAB PO SCH (08:19)
[2018-01-21] MEDS: Pregabalin 50 MG CAP PO SCH ×2 (08:20→20:32)
[2018-01-21] MEDS: Potassium Chloride 10 MEQ TAB PO SCH (08:20)
[2018-01-21] MEDS: Pregabalin 25 MG CAP PO SCH (08:21)
[2018-01-21] MEDS: HYDROcodone/Acetaminophen 5/325 mg Tablet PO PRN ×3 (08:21→23:37)
[2018-01-21] MEDS: DICLOFENAC SODIUM PO SCH ×2 (08:22→20:40)
[2018-01-21] MEDS: MISOPROSTOL PO SCH ×2 (08:22→20:40)
[2018-01-21 18:00] LABS: Vancomycin, Trough 19.9 ug/mL
[2018-01-21] MEDS: traZODone HCl 50 MG TAB PO SCH (20:29)
[2018-01-21] MEDS: Venlafaxine HCl XR 150 MG CAP PO SCH (20:29)
[2018-01-21] MEDS: Pregabalin 100 MG CAP PO SCH (20:33)
[2018-01-22] MEDS: Vancomycin HCl 750 MG in Sodium Chloride 0.9% 250 ML 250 ML IVPB SCH ×2 (05:49→17:32)
[2018-01-22 06:11] LABS: Hemoglobin 8.8 g/dL (12.0-16.0); Platelet Count 413 thou/uL (130-400)
[2018-01-22] MEDS: Potassium Chloride 10 MEQ TAB PO SCH (08:35)
[2018-01-22] MEDS: Pregabalin 50 MG CAP PO SCH ×2 (08:36→20:29)
[2018-01-22] MEDS: Stress 600 With Zinc 1 TAB PO SCH (08:36)
[2018-01-22] MEDS: Docusate 100 MG CAP PO SCH ×2 (08:36→20:30)
[2018-01-22] MEDS: Apixaban 5 MG TAB PO SCH ×2 (08:36→20:27)
[2018-01-22] MEDS: Cyanocobalamin (Vitamin B-12) 1,000 MCG TAB PO SCH (08:36)
[2018-01-22] MEDS: Pregabalin 25 MG CAP PO SCH (08:37)
[2018-01-22] MEDS: MISOPROSTOL PO SCH ×2 (08:38→20:32)
[2018-01-22] MEDS: HYDROcodone/Acetaminophen 5/325 mg Tablet PO PRN ×3 (08:38→20:27)
[2018-01-22] MEDS: DICLOFENAC SODIUM PO SCH ×2 (08:38→20:32)
[2018-01-22] MEDS: Pregabalin 100 MG CAP PO SCH (20:28)
[2018-01-22] MEDS: Venlafaxine HCl XR 150 MG CAP PO SCH (20:30)
[2018-01-22] MEDS: traZODone HCl 50 MG TAB PO SCH (20:30)
[2018-01-23] MEDS: Vancomycin HCl 750 MG in Sodium Chloride 0.9% 250 ML 250 ML IVPB SCH ×2 (05:19→17:55)
[2018-01-23] MEDS: HYDROcodone/Acetaminophen 5/325 mg Tablet PO PRN ×2 (05:19→10:57)
[2018-01-23] MEDS: Stress 600 With Zinc 1 TAB PO SCH (09:46)
[2018-01-23] MEDS: Pregabalin 25 MG CAP PO SCH (09:47)
[2018-01-23] MEDS: Docusate 100 MG CAP PO SCH ×2 (09:47→20:14)
[2018-01-23] MEDS: Pregabalin 50 MG CAP PO SCH ×2 (09:47→20:14)
[2018-01-23] MEDS: Cyanocobalamin (Vitamin B-12) 1,000 MCG TAB PO SCH (09:47)
[2018-01-23] MEDS: DICLOFENAC SODIUM PO SCH (09:48)
[2018-01-23] MEDS: Potassium Chloride 10 MEQ TAB PO SCH (09:48)
[2018-01-23] MEDS: Apixaban 5 MG TAB PO SCH ×2 (09:48→20:13)
[2018-01-23] MEDS: MISOPROSTOL PO SCH (09:48)
[2018-01-23] MEDS: Ondansetron ODT 4 MG TAB PO PRN (11:31)
[2018-01-23] MEDS: Venlafaxine HCl XR 150 MG CAP PO SCH (20:14)
[2018-01-23] MEDS: Pregabalin 100 MG CAP PO SCH (20:15)
[2018-01-23] MEDS: traZODone HCl 50 MG TAB PO SCH (20:16)
[2018-01-24] MEDS: HYDROcodone/Acetaminophen 5/325 mg Tablet PO PRN ×4 (02:56→19:55)
[2018-01-24] MEDS: Vancomycin HCl 750 MG in Sodium Chloride 0.9% 250 ML 250 ML IVPB SCH ×2 (05:23→17:21)
[2018-01-24 05:32] LABS: Anion Gap 14 mmol/L (10-20); BUN (Urea Nitrogen) 7 mg/dL (9.8-20.1); Calc. Creatinine Clearance 108 mL/min (70-130); Calcium 8.9 mg/dL (7.8-10.44); Carbon Dioxide 24 mmol/L (23-31); Chloride 108 mmol/L (98-107); Estimated GFR-MDRD 87; Glucose 102 mg/dL (80-115); Hemoglobin 9.1 g/dL (12.0-16.0); Potassium 3.8 mmol/L (3.5-5.1); Sodium 142 mmol/L (136-145)
[2018-01-24 05:33] LABS: Platelet Count 438 thou/uL (130-400)
[2018-01-24] MEDS: Docusate 100 MG CAP PO SCH ×2 (08:46→20:01)
[2018-01-24] MEDS: Stress 600 With Zinc 1 TAB PO SCH (08:46)
[2018-01-24] MEDS: Potassium Chloride 10 MEQ TAB PO SCH (08:46)
[2018-01-24] MEDS: Apixaban 5 MG TAB PO SCH ×2 (08:46→20:00)
[2018-01-24] MEDS: Pregabalin 50 MG CAP PO SCH ×2 (08:46→20:01)
[2018-01-24] MEDS: Cyanocobalamin (Vitamin B-12) 1,000 MCG TAB PO SCH (08:47)
[2018-01-24] MEDS: Pregabalin 25 MG CAP PO SCH (08:47)
[2018-01-24 17:39] VITALS: BMI 31.4
[2018-01-24] MEDS: traZODone HCl 50 MG TAB PO SCH (20:00)
[2018-01-24] MEDS: Venlafaxine HCl XR 150 MG CAP PO SCH (20:00)
[2018-01-24] MEDS: Pregabalin 100 MG CAP PO SCH (20:03)
[2018-01-25] MEDS: HYDROcodone/Acetaminophen 5/325 mg Tablet PO PRN ×5 (01:08→18:28)
[2018-01-25] MEDS: Vancomycin HCl 750 MG in Sodium Chloride 0.9% 250 ML 250 ML IVPB SCH ×2 (05:51→17:33)
[2018-01-25 06:49] VITALS: BP 115/58; TEMP 97.2
[2018-01-25] MEDS: Docusate 100 MG CAP PO SCH (08:56)
[2018-01-25] MEDS: Potassium Chloride 10 MEQ TAB PO SCH (08:56)
[2018-01-25] MEDS: Apixaban 5 MG TAB PO SCH (08:57)
[2018-01-25] MEDS: Pregabalin 25 MG CAP PO SCH (08:57)
[2018-01-25] MEDS: Cyanocobalamin (Vitamin B-12) 1,000 MCG TAB PO SCH (08:57)
[2018-01-25] MEDS: Stress 600 With Zinc 1 TAB PO SCH (08:57)
[2018-01-25] MEDS: Pregabalin 50 MG CAP PO SCH (08:58)
[2018-01-25 17:11] LABS: Vancomycin, Trough 18.4 ug/mL
--- NOTE | 2018-01-26 04:24 | DIS ---
DATE OF ADMISSION: 12/30/2017 DATE OF DISCHARGE: 01/25/2018 PRIMARY CARE PHYSICIAN: Dr. Bridgette Allen. DISCHARGING PHYSICIAN: Dr. Isidra Masterson. PRIMARY FINAL DIAGNOSIS: Osteomyelitis, status post laminectomy, requiring incision and drainage. SECONDARY DIAGNOSES: 1. Physical debility. 2. Status post incision and drainage of lumbar, intraspinal and paraspinal abscess, removal of pedicle screw and replacement of L2 to L5 pedicle screws. 3. Long-term IV antibiotics. 4. Left deep venous thrombosis, status post inferior vena cava filter. BRIEF HOSPITAL COURSE: Ms. Torres is a very pleasant 67-year-old unfortunate female who underwent an initial laminectomy on 08/19/2017, which required washout of the lumbar wound and debridement on 09/16/2017. The patient received long-term IV antibiotics, then underwent inpatient physical therapy for about 2 months with improved gait. The patient states unfortunately, she started having severe back pain and lower extremity weakness, which required her to go back in and she was noted 12/21 to have another paraspinal abscess, osteomyelitis, and diskitis. The patient underwent reopening of the lumbar incision, irrigation, debridement, and removal of old screws, replacement of new pedicle screws by neurosurgeon, Dr. Rodriguez on 12/22. The patient was started on a 12-week regimen of IV vancomycin by ID specialist, Dr. Stein. Due to this, the patient was physically deconditioned and she was subsequently transferred to [facility] for anticipated IV antibiotics and physical therapy for 3 months. The patient improved significantly during hospitalization, she completed about a 35-day course of IV vancomycin, but unfortunately had to be discharged home to continue IV infusion as an outpatient per insurance recommendation. During hospitalization, the patient had an episode of UTI, where she was treated with Cipro and this was significantly improved. Patient initially came in with a Teran that was discontinued with no issues. The patient was able to follow up with neurosurgeon who states the wounds were healing nicely. She progressed with physical therapy. On the day of discharge, the patient was able to ambulate with a rolling walker about 325 feet with minimal assistance. The patient's balance and activity tolerance have improved well prior to discharge. The patient was set up to have outpatient infusion at [facility] 2 times a day. [facility] to resume physical therapy and occupational therapy at home. During hospitalization in [place], the patient had a left DVT and she was contraindicated to have anticoagulant at that time, so she had a temporary IVC filter placed. The patient was able to follow up with Dr. Mckeon who will have an IVC filter removed on 01/27/2018. The patient was started on Eliquis 5 mg b.i.d., the week prior to discharge which she will continue at home. During hospitalization, her pain was managed with fentanyl patch and hydrocodone and fentanyl patch was subsequently discontinued 2 weeks prior to discharge home. The patient was continued on hydrocodone, but diclofenac for arthritis was discontinued as she was started on Eliquis and this was contraindicated. The patient had weekly labs and CRP, ESR progressively improved during hospitalization. The patient was discharged home with family members in a stable condition. DISCHARGE INSTRUCTIONS: She will follow up with PCP, Dr. Angeles in 2 weeks as well as Dr. Stein and Dr. Rodriguez as outpatient. She will follow up with Dr. Mckeon in 2 days to have IVC filter removed. She will continue with twice a day IV vancomycin at [facility]. She will continue with [facility] for PT, OT at home. She would have weekly labs and vancomycin trough done at [facility]. She will resume a regular diet. She will ambulate with a walker at all times. She will use a back brace as recommended. DISCHARGE MEDICATIONS: Hydrocodone 5/325 two tabs q.4 hours p.r.n., Eliquis 5 mg b.i.d., Colace 100 mg b.i.d., potassium chloride 10 mEq daily, Protonix 40 daily, Lyrica 150 at bedtime, Skelaxin 800 mg b.i.d., vitamin B12 of 1000 mg daily, trazodone 100 mg at bedtime p.r.n. insomnia, vitamin B complex 1 capsule daily. DISPOSITION: The patient was discharged home safely with her . CODE STATUS: The patient is a DNR. DISCHARGE VITAL SIGNS: Temperature 97.2, pulse 96, respirations 22, blood pressure 115/58, O2 sat room air 97%. MTDD
== END 2018-01-25 18:44 | disposition home health service (06) | DRG 95 ==
LOC: MADMS 17:01
PROVIDERS: ADMIT Family Medicine; ATTEND Family Medicine
DX: G06.1 Intraspinal abscess and granuloma (principal); M46.26 Osteomyelitis of vertebra, lumbar region; T81.4XXA Infection following a procedure, initial encounter; N39.0 Urinary tract infection, site not specified; R26.89 Other abnormalities of gait and mobility; G89.29 Other chronic pain; M19.90 Unspecified osteoarthritis, unspecified site; M48.061 Spinal stenosis, lumbar region without neurogenic claudication; M46.46 Discitis, unspecified, lumbar region; Z86.718 Personal history of other venous thrombosis and embolism; Z66 Do not resuscitate; D64.9 Anemia, unspecified; D47.3 Essential (hemorrhagic) thrombocythemia
CPT/HCPCS: 36415; 36416; 80048; 80202; 81001; 82565; 85014; 85018; 85025; 85049; 85652; 86140; 87077; 87086; 87186; 90471; 90670; A4216; G0009; J2997; J3370; J7050; Q0162